=== PATIENT | male | born 1950 | race Caucasian/White ===

== ENCOUNTER → 2017-06-21 | Outpatient (CLI) | payer MEDICARE, OTHER ==
--- NOTE | 2017-06-21 12:35 | US ---
LOWER EXTREMITY VENOUS INSUFFICIENCY SIDE PERFORMED: Bilateral Left food ulcer since February. No hx of DVT. On aspirin. 1) Color flow is present and patency is documented in the following vessels. No DVT or SVT is noted . EIV Common Femoral Vein Deep Femoral Vein Femoral Vein Popliteal Vein Proximal Calf Veins Greater Saph Vein 2) There is venous reflux noted at the following venous levels: Right mid and distal femoral vein. Left distal femoral vein. IMPRESSION: No ultrasound evidence for acute DVT in either lower extremity. Some bilateral venous ref lux is noted as detailed above during real-time scanning.
--- NOTE | 2017-06-27 14:04 | P.ARTDOP ---
Arterial Doppler LOWER EXTREMITY ARTERIAL DOPPLER: DATE OF SERVICE: 06/21/2017 Reason for study: Plantar ulcer diabetic ulcer left foot. Doppler waveforms: Multiphasic bilaterally throughout. Pulse volume recording: Normal configuration. Pressure gradients: None. Ankle-brachial indices: Greater than 1 bilaterally. Toe pressures: 1:30 on the right, 134 on the left Impression: Normal study.
== END | disposition home or self-care (01) ==
LOC: RADUSWWP 09:35
PROVIDERS: ATTEND Family Medicine
DX: M79.604 Pain in right leg (principal); M79.605 Pain in left leg; E13.621 Other specified diabetes mellitus with foot ulcer
CPT/HCPCS: 93923; 93970

== ENCOUNTER → 2018-08-28 | Outpatient (CLI) | payer MEDICARE, OTHER ==
--- NOTE | 2018-08-28 16:33 | US ---
LOWER EXTREMITY VENOUS INSUFFICIENCY SIDE PERFORMED: Bilateral 1) Color flow is present and patency is documented in the following vessels. No DVT or SVT is noted . EIV Common Femoral Vein Deep Femoral Vein Femoral Vein Popliteal Vein Proximal Calf Veins Greater Saph Vein Upper Small Saph Vein Extremely difficult and limited study due to patient body habitus and patient had difficulty perfor jim valsalva Definite reflux seen at levels: left proximal mid and distal popliteal vein IMPRESSION: 1. Reflux present left proximal and mid femoral vein and distal popliteal vein. 2. No suspicious changes to suggest deep venous thrombosis bilateral lower extremities. Examination i s limited.
== END | disposition home or self-care (01) ==
LOC: RADUSWWP 13:26
PROVIDERS: ATTEND Podiatrist
DX: I87.8 Other specified disorders of veins (principal); M79.605 Pain in left leg
CPT/HCPCS: 93923; 93970

== ENCOUNTER 2019-01-06 18:18 | Observation (INO) | payer MEDICARE, OTHER ==
[2019-01-06 18:38] VITALS: RESP 18
[2019-01-06] MEDS ORDERED: DOXYCYCLINE 100 MG CAP PO STA (19:12)
--- NOTE | 2019-01-06 19:16 | ED ---
Skin/Abscess/FB HPI - General Chief complaint: Skin/Abscess/Foreign Body Stated complaint: Foot Wound-diabetic Time Seen by Provider: 01/06/19 18:33 Source: patient Mode of arrival: ambulatory Limitations: no limitations - History of Present Illness Initial comments: Patient is a 68-year-old male with chronic debility, wheelchair-bound, who presents with a chief complaint of a blister on his right heel. Patient receives wound care for the wound on his left foot. He sees them tomorrow. The patient states that he does not know whether he should come to the emergency department today, her weight to see wound care doctor tomorrow regarding his right heel. Patient states it is painful to touch, he denies any fever, chills, nausea or vomiting. He cannot identify inciting incident, no aggravating or alleviating factors. Timing is intermittent. - Related Data Home Medications Medication Instructions Recorded Confirmed Aspirin 81 mg PO DAILY 03/19/15 09/20/18 Cyanocobalamin [Vitamin B-12] 1,000 mcg PO BID 03/19/15 09/20/18 Furosemide [Lasix] 40 mg PO BID 03/19/15 09/20/18 Insulin Aspart [NovoLOG Flexpen] 0 units SQ TID-W/MEALS PRN 03/19/15 09/20/18 Insulin Detemir (Levemir) [Levemir] 23 unit SQ HS 03/19/15 09/20/18 Losartan Potassium [Cozaar] 100 mg PO HS 03/19/15 09/20/18 Metoprolol Tartrate [Lopressor] 100 mg PO BID 03/19/15 09/20/18 NIFEdipine XL [Procardia XL] 30 mg PO DAILY 03/19/15 09/20/18 Oxybutynin Chloride [Ditropan] 5 mg PO BID 03/19/15 09/20/18 PARoxetine HCL [Paxil] 40 mg PO DAILY 03/19/15 09/20/18 metFORMIN HCL 1,000 mg PO BID 03/19/15 09/20/18 Cholecalciferol (Vitamin D3) 2,000 unit PO BID 02/20/17 09/20/18 [Vitamin D3] Potassium Chloride [Klor-Con 20] 20 meq PO BID 02/20/17 09/20/18 Naproxen Sodium [Aleve] 220 mg PO HS PRN 09/17/17 09/20/18 Simvastatin [Zocor] 40 mg PO DAILY 09/17/17 09/20/18 DULoxetine HCL [Cymbalta] 30 mg PO DAILY 08/15/18 09/20/18 Allergies Allergy/AdvReac Type Severity Reaction Status Date / Time clopidogrel [From Plavix] Allergy Rash/Hives Verified 09/20/18 10:24 morphine Allergy Itching Verified 09/20/18 10:24 Review of Systems ROS Statement: Those systems with pertinent positive or pertinent negative responses have been documented in the HPI. ROS Other: All systems not noted in ROS Statement are negative. Skin: Reports: lesions, other Past Medical History Past Medical History: Cancer, Diabetes Mellitus, GERD/Reflux, Hearing Disorder / Deafness, Hyperlipidemia, Hypertension, Osteoarthritis (OA), Prostate Disorder, Skin Disorder, Sleep Apnea/CPAP/BIPAP, Vascular Disorder Additional Past Medical History / Comment(s): IRREG HEART BEAT, HEMORRHOIDS,, STATES ENLARGED HEART., INCONTINENT OF URINE D/T NERVE DAMAGE FROM BACK SURGERY. NEUROPATHY, DDD,, KIDNEY STONES., [place]- HEARING AIDS, , HX OF FALLS, [place] torn ROTATOR CUFFS. , STATES WOUND ON LEFT HEEL AND EDEMA IN LEGS AND FEET- wheelchair History of Any Multi-Drug Resistant Organisms: MRSA Date of last positivie culture/infection: 07/12/17 MDRO Source:: LT HEEL Past Surgical History: Back Surgery, Heart Catheterization Additional Past Surgical History / Comment(s): BACK FUSION, VEIN STRIPPING, surgery on finger after injury(not sure which) Past Anesthesia/Blood Transfusion Reactions: No Reported Reaction Past Psychological History: Anxiety, Depression Smoking Status: Never smoker Past Alcohol Use History: None Reported Past Drug Use History: None Reported - Past Family History Father Family Medical History: Cancer Additional Family Medical History / Comment(s): CANCEROUS BRAIN TUMOR Mother Family Medical History: Deep Vein Thrombosis (DVT) Sister(s) Family Medical History: Diabetes Mellitus, Myocardial Infarction ([place]), Renal Disease General Exam Limitations: no limitations General appearance: alert, in no apparent distress Head exam: Present: atraumatic, normocephalic Eye exam: Present: normal appearance ENT exam: Present: normal exam Neck exam: Present: normal inspection Respiratory exam: Absent: respiratory distress Cardiovascular Exam: Present: regular rate, normal rhythm GI/Abdominal exam: Present: soft. Absent: distended, tenderness Rectal exam: Present: deferred Extremities exam: Present: normal inspection Back exam: Present: normal inspection, other (Patient has a stage III decubitus ulcer on his lower back, midline. This appears well-healed and cared for) Neurological exam: Present: alert, oriented X3 Psychiatric exam: Present: normal affect, normal mood Skin exam: Present: warm, dry, other (Patient has venous stasis ulcers on his l ower extremities, he has a large serous blister on the right heel, he has a stage III decubitus ulcer in his lower back) Course Vital Signs 01/06/19 18:31 Temperature 98.1 F Pulse Rate 72 Respiratory 18 Rate Blood Pressure 135/82 O2 Sat by Pulse 98 Oximetry Medical Decision Making - Medical Decision Making Emergency the chief complaint of blister on his right heel. On initial evaluation, vitals are stable, patient is in no acute distress. The blister appears serous, there is minimal surrounding erythema. At this time, does not appear infectious. I did discuss with the patient regarding plans of care. The patient states that he would be agreeable to following up with his adult health clinical nurse specialist who he sees tomorrow. Patient was started on doxycycline as a measure against an infectious etiology. At this time, is stable for discharge. He was instructed to keep his appointment with wound care tomorrow, return to the ED if symptoms worsen or change. Disposition Clinical Impression: Pressure ulcer Disposition: HOME SELF-CARE Condition: Good Instructions (If sedation given, give patient instructions): Acute Wounds (ED), Chronic Wounds (ED), How to Prevent Pressure Injuries (ED) Is patient prescribed a controlled substance at d/c from ED?: No Referrals: Mejia Singleton MD [Primary Care Provider] - 1-2 days
[2019-01-06 20:56] LABS: Appearance,Urine Clear (Clear); Basophils % (A) 0 %; Bilirubin,Urine Negative (Negative); Blood,Urine Negative (Negative); Color,Urine Yellow; Eosinophils # (A) 0.2 k/uL (0-0.7); Eosinophils % (A) 4 %; Glucose,Urine (UA) 1+ (Negative); HCT 39.3 % (39.0-53.0); HGB 13.5 gm/dL (13.0-17.5); Ketones,Urine Negative (Negative); Leukocyte Esterase,Urine Negative (Negative); Lymphocytes # (A) 0.9 k/uL (1.0-4.8); Lymphocytes % (A) 19 %; MCH 34.3 pg (25.0-35.0); MCHC 34.4 g/dL (31.0-37.0); MCV 99.8 fL (80.0-100.0); Macrocytosis Slight; Mean Platelet Volume 7.4; Monocytes # (A) 0.3 k/uL (0-1.0); Monocytes % (A) 6 %; Neutrophils # (A) 3.1 k/uL (1.3-7.7); Neutrophils % (A) 69 %; Nitrite,Urine Negative (Negative); PH, Urine 6.5 (5.0-8.0); Platelet Count 139 k/uL (150-450); Protein,Urine Negative (Negative); RBC 3.93 m/uL (4.30-5.90); RDW 14.3 % (11.5-15.5); Specific Gravity,Urine 1.014 (1.001-1.035); WBC 4.5 k/uL (3.8-10.6)
[2019-01-06 21:07] LABS: Anion Gap 5 mmol/L; Blood Urea Nitrogen 15 mg/dL (9-20); Calcium 9.2 mg/dL (8.4-10.2); Carbon Dioxide 25 mmol/L (22-30); Chloride 108 mmol/L (98-107); Glucose 190 mg/dL (74-99); Potassium 4.1 mmol/L (3.5-5.1); Sodium 138 mmol/L (137-145)
[2019-01-06] MEDS ORDERED: NALOXONE 0.4 MG/ML 1 ML VIAL IV PRN (22:08)
[2019-01-07] MEDS ORDERED: OXYBUTYNIN CHLORIDE 5 MG TAB PO SCH ×2 (02:00→09:00)
[2019-01-07 02:06] LABS: Glucose,Whole Blood 213 mg/dL (75-99)
[2019-01-07] MEDS ORDERED: LOSARTAN 50 MG TAB PO SCH ×2 (02:15→21:00)
[2019-01-07] MEDS ORDERED: NAPROXEN 250 MG TAB PO PRN ×2 (02:15→06:00)
[2019-01-07] MEDS ORDERED: INSULIN DETEMIR (LEVEMIR) 100 UNIT/ML SYR SQ SCH ×2 (02:15→21:00)
[2019-01-07 06:49] LABS: Glucose,Whole Blood 190 mg/dL (75-99)
[2019-01-07] MEDS ORDERED: CYANOCOBALAMIN 500 MCG TAB PO SCH (07:30)
[2019-01-07 07:31] VITALS: BP 158/79; PULSE 69; TEMP 97.4
--- NOTE | 2019-01-07 07:48 | CONS ---
DATE OF CONSULTATION: 01/08/2019 This is a 68-year-old diabetic gentleman who came to the emergency room last night. He had a blister formation on his right heel. No history of trauma noted. Patient also has a chronic wound of the left heel which today he has appointment at 10 in the morning in the wound clinic. I was called in by the ER physician. They cannot send him home because he has a blister on her right heel and they want to keep him for observation overnight and this morning he will go to the wound clinic. The patient is on IV antibiotic right now. MEDICAL HISTORY: History of diabetes, history of myocardial infarction in the past, history of chronic renal failure, history of prostate disorder. SURGICAL HISTORY: Patient had a back surgery done in the past. PHYSICAL EXAMINATION: On examination, patient has a blister on his right heel and also chronic wound of the left heel. NECK: Supple. CHEST: Clear. ABDOMEN: Soft. Femorals are 1+. PLAN: The patient is on IV antibiotic. I will call the wound clinic today to be seen and patient will be discharged from the observation. MMODL / SUZETTEN: [id number] / MTDD
[2019-01-07] MEDS ORDERED: FUROSEMIDE 40 MG TAB PO SCH (09:00)
[2019-01-07] MEDS ORDERED: ATORVASTATIN 20 MG TAB PO SCH (09:00)
[2019-01-07] MEDS ORDERED: DULoxetine HCL 30 MG CAPSULE.DR PO SCH (09:00)
[2019-01-07] MEDS ORDERED: PARoxetine 20 MG TAB PO SCH (09:00)
[2019-01-07] MEDS ORDERED: NIFEdipine XL 30 MG TAB.ER.24 PO SCH (09:00)
[2019-01-07] MEDS ORDERED: POTASSIUM CHLORIDE ER 20 MEQ TAB.ER PO SCH (09:00)
[2019-01-07] MEDS ORDERED: CHOLECALCIFEROL 1,000 UNIT TAB PO SCH (09:00)
[2019-01-07] MEDS ORDERED: METOPROLOL TARTRATE 50 MG TAB PO SCH (09:00)
[2019-01-07] MEDS ORDERED: metFORMIN 500 MG TAB PO SCH (09:00)
[2019-01-07] MEDS ORDERED: ASPIRIN 81 MG PO SCH (09:00)
--- NOTE | 2019-01-07 09:15 | P.HPIM ---
History of Present Illness This is a combined H&P and discharge summary This is a pleasant 68 years old male with past medical history of diabetes mellitus, hyperlipidemia, hypertension, chronic left wound on his left heel, is bedbound for the last 4-5 months. Decreased sensation from the waist down, urine incontinence. Obesity. Who has a follow-up appointment with him in the clinic for his left heel wound today. Patient came to the emergency room ye sterday for a blister in his right heel for the last 2 days with no surrounding cellulitis, no worsening pain. No fever. He has no other symptoms like chest pain or dyspnea. No diarrhea, no rash. Patient states that he has difficulty in the transportation due to his body habitus as he is obese and inability to walk for the last few months, he has family with small cars or uncomfortable seats and he kept in the hospital overnight for observation with the hope patient can be discharged today for his wound clinic. On examination patient has some serous blister on his right heel with no surrounding cellulitis with no worsening tenderness or loss of function, patient was started on doxycycline for a few days already in the emergency room and kept overnight to be evaluated by the surgeon. Dr. Pinzon from surgery examined the patient today and admitted the patient to be sent to the wound clinic today. Patient's wants to be discharged to his wound clinic appointment today at 10:00 am. Patient was cleared for discharge by the surgeon. Patient is found stable and can be discharged home and to wound clinic appointment today in guarded prognosis. Problems and management plan were discussed with the patient and he verbalized understanding and acceptance CONSTITUTIONAL: No fever, no malaise, no fatigue. HEENT: No recent visual problems or hearing problems. Denied any sore throat. CARDIOVASCULAR: No orthopnea, PND, no palpitations, no syncope. PULMONARY: No shortness of breath, no cough, no hemoptysis. GASTROINTESTINAL: No diarrhea, no nausea, no vomiting, no abdominal pain. Normoactive bowel sounds. NEUROLOGICAL: No headaches, no numbness. HEMATOLOGICAL: Denies any bleeding or petechiae. GENITOURINARY: Denies any burning micturition, frequency, or urgency. MUSCULOSKELETAL/RHEUMATOLOGICAL: Denies any joint pain, swelling, or any muscle pain. ENDOCRINE: Denies any polyuria or polydipsia. GENERAL: The patient is alert and oriented x3, not in any acute distress. Obese HEENT: Pupils are round and equally reacting to light. EOMI. No scleral icterus. No conjunctival pallor. Normocephalic, atraumatic. No pharyngeal erythema. No thyromegaly. CARDIOVASCULAR: S1 and S2 present. No murmurs, rubs, or gallops. PULMONARY: Chest is clear to auscultation, no wheezing or crackles. ABDOMEN: Soft, nontender, nondistended, normoactive bowel sounds. No palpable or ganomegaly. MUSCULOSKELETAL: No joint swelling or deformity. -EXTREMITIES: No cyanosis, clubbing, or pedal edema. Serous blister on the right heel, wound on the left heel. No cellulitis on both sides. -NEUROLOGICAL: Gross neurological examination did not reveal any focal deficits. Patient is bedridden, he has decreased sensation below the waist SKIN: No rashes. Past Medical History Past Medical History: Cancer, Diabetes Mellitus, GERD/Reflux, Hearing Disorder / Deafness, Hyperlipidemia, Hypertension, Osteoarthritis (OA), Prostate Disorder, Skin Disorder, Sleep Apnea/CPAP/BIPAP, Vascular Disorder Additional Past Medical History / Comment(s): IRREG HEART BEAT, HEMORRHOIDS,, STATES ENLARGED HEART., INCONTINENT OF URINE D/T NERVE DAMAGE FROM BACK SURGERY. NEUROPATHY, DDD,, KIDNEY STONES., [place]- HEARING AIDS, , HX OF FALLS, [place] torn ROTATOR CUFFS. , STATES WOUND ON LEFT HEEL AND EDEMA IN LEGS AND FEET- wheelchair History of Any Multi-Drug Resistant Organisms: MRSA Date of last positivie culture/infection: 07/12/17 MDRO Source:: LT HEEL Past Surgical History: Back Surgery, Heart Catheterization Additional Past Surgical History / Comment(s): BACK FUSION, VEIN STRIPPING, surgery on finger after injury(not sure which) Past Anesthesia/Blood Transfusion Reactions: No Reported Reaction Past Psychological History: Anxiety, Depression Additional Psychological History / Comment(s): . Smoking Status: Never smoker Past Alcohol Use History: None Reported Past Drug Use History: None Reported - Past Family History Father Family Medical History: Cancer Additional Family Medical History / Comment(s): CANCEROUS BRAIN TUMOR Mother Family Medical History: Deep Vein Thrombosis (DVT) Sister(s) Family Medical History: Diabetes Mellitus, Myocardial Infarction ([place]), Renal Disease Medications and Allergies Home Medications Medication Instructions Recorded Confirmed Type Aspirin 81 mg PO DAILY 03/19/15 01/06/19 History Cyanocobalamin [Vitamin B-12] 1,000 mcg PO BID 03/19/15 01/06/19 History Furosemide [Lasix] 40 mg PO BID 03/19/15 01/06/19 History Insulin Aspart [NovoLOG Flexpen] See Protocol SQ TID-W/MEALS 03/19/15 01/06/19 History Insulin Detemir (Levemir) [Levemir] 23 unit SQ HS 03/19/15 01/06/19 History Losartan Potassium [Cozaar] 100 mg PO HS 03/19/15 01/06/19 History Metoprolol Tartrate [Lopressor] 100 mg PO BID 03/19/15 01/06/19 History NIFEdipine XL [Procardia XL] 30 mg PO DAILY 03/19/15 01/06/19 History Oxybutynin Chloride [Ditropan] 5 mg PO BID 03/19/15 01/06/19 History PARoxetine HCL [Paxil] 40 mg PO DAILY 03/19/15 01/06/19 History metFORMIN HCL 1,000 mg PO BID 03/19/15 01/06/19 History Cholecalciferol (Vitamin D3) 2,000 unit PO BID 02/20/17 01/06/19 History [Vitamin D3] Potassium Chloride [Klor-Con 20] 20 meq PO BID 02/20/17 01/06/19 History Simvastatin [Zocor] 40 mg PO DAILY 09/17/17 01/06/19 History DULoxetine HCL [Cymbalta] 30 mg PO DAILY 08/15/18 01/06/19 History Doxycycline Hyclate 100 mg PO Q12H #14 tab 01/06/19 Rx Allergies Allergy/AdvReac Type Severity Reaction Status Date / Time clopidogrel [From Plavix] Allergy Rash/Hives Verified 09/20/18 10:24 morphine Allergy Itching Verified 09/20/18 10:24 Physical Exam Vitals: Vital Signs Temp Pulse Pulse Resp BP BP Pulse Ox 01/07/19 08:00 69 18 01/07/19 07:20 97.4 F L 69 18 158/79 93 L 01/07/19 03:07 67 18 01/07/19 00:00 98 F 67 18 155/87 96 01/06/19 22:28 18 01/06/19 21:50 142/74 93 L 01/06/19 21:40 142/74 90 L 01/06/19 21:30 151/77 92 L 01/06/19 21:20 97.6 F 68 151/77 92 L 01/06/19 21:10 151/77 92 L 01/06/19 21:00 93 L 01/06/19 20:50 94 L 01/06/19 20:00 131/98 01/06/19 19:50 131/98 01/06/19 19:40 131/98 01/06/19 19:30 142/66 93 L 01/06/19 19:20 97.6 F 68 142/66 94 L 01/06/19 19:10 142/66 94 L 01/06/19 19:00 135/82 94 L 01/06/19 18:50 135/82 94 L 01/06/19 18:40 135/82 93 L 01/06/19 18:32 135/82 96 01/06/19 18:31 98.1 F 72 18 135/82 98 Intake and Output 01/06/19 01/07/19 01/07/19 22:59 06:59 14:59 Intake Total 120 Balance 120 Intake: Oral 120 Other: Voiding Method Urinal Urinal # Voids 1 1 Weight 156.489 kg Results CBC & Chem 7: 01/06/19 20:40 01/06/19 20:40 Labs: Abnormal Lab Results - Last 24 Hours (Table) 01/06/19 01/06/19 01/06/19 Range/Units 20:40 20:40 20:40 RBC 3.93 L (4.30-5.90) m/uL Plt Count 139 L (150-450) k/uL Lymphocytes # 0.9 L (1.0-4.8) k/uL Chloride 108 H (98-107) mmol/L Creatinine 0.60 L (0.66-1.25) mg/dL Glucose 190 H (74-99) mg/dL POC Glucose (mg/dL) (75-99) mg/dL Urine Glucose (UA) 1+ H (Negative) 01/07/19 01/07/19 Range/Units 02:05 06:38 RBC (4.30-5.90) m/uL Plt Count (150-450) k/uL Lymphocytes # (1.0-4.8) k/uL Chloride (98-107) mmol/L Creatinine (0.66-1.25) mg/dL Glucose (74-99) mg/dL POC Glucose (mg/dL) 213 H 190 H (75-99) mg/dL Urine Glucose (UA) (Negative) Thrombosis Risk Factor Assmnt - Choose All That Apply Each Factor Represents 1 point: Obesity (BMI >25) Each Risk Factor Represents 2 Points: Age 61-74 years Thrombosis Risk Factor Assessment Total Risk Factor Score: 3 Thrombosis Risk Factor Assessment Level: Moderate Risk
== END 2019-01-07 09:50 | disposition home or self-care (01) ==
LOC: EC 18:18 → 1SOBS 22:08
PROVIDERS: ADMIT Internal Medicine; ATTEND Internal Medicine
DX: S91.302A Unspecified open wound, left foot, initial encounter (principal); S90.821A Blister (nonthermal), right foot, initial encounter; L89.103 Pressure ulcer of unspecified part of back, stage 3; E11.622 Type 2 diabetes mellitus with other skin ulcer; E66.9 Obesity, unspecified; Z68.42 Body mass index [BMI] 45.0-49.9, adult; K21.9 Gastro-esophageal reflux disease without esophagitis; E78.5 Hyperlipidemia, unspecified; E11.40 Type 2 diabetes mellitus with diabetic neuropathy, unspecified; E11.22 Type 2 diabetes mellitus with diabetic chronic kidney disease; I13.10 Hypertensive heart and chronic kidney disease without heart failure, with stage 1 through stage 4 chronic kidney disease, or unspecified chronic kidney disease; N18.9 Chronic kidney disease, unspecified; M19.90 Unspecified osteoarthritis, unspecified site; G47.30 Sleep apnea, unspecified; F41.9 Anxiety disorder, unspecified; F32.9 Major depressive disorder, single episode, unspecified; I25.2 Old myocardial infarction; H91.90 Unspecified hearing loss, unspecified ear; R26.2 Difficulty in walking, not elsewhere classified; Z99.89 Dependence on other enabling machines and devices; Z98.1 Arthrodesis status; Z99.3 Dependence on wheelchair; Z74.01 Bed confinement status; Z87.442 Personal history of urinary calculi; Z97.4 Presence of external hearing-aid; Z86.14 Personal history of Methicillin resistant Staphylococcus aureus infection; R32 Unspecified urinary incontinence; Z79.82 Long term (current) use of aspirin; Z79.4 Long term (current) use of insulin; Z79.899 Other long term (current) drug therapy; Z88.5 Allergy status to narcotic agent; Z88.8 Allergy status to other drugs, medicaments and biological substances; Z91.81 History of falling; Z82.49 Family history of ischemic heart disease and other diseases of the circulatory system; Z80.8 Family history of malignant neoplasm of other organs or systems; Z83.2 Family history of diseases of the blood and blood-forming organs and certain disorders involving the immune mechanism; Z84.1 Family history of disorders of kidney and ureter
CPT/HCPCS: 99284; 36415; 80048; 85025; 81003; G0378 ×2

== ENCOUNTER 2020-06-11 17:28 | Observation (INO) | payer MEDICARE, OTHER ==
[2020-06-11] MEDS ORDERED: ACETAMINOPHEN TAB 500 MG TAB PO PRN (17:38)
[2020-06-11 18:36] LABS: Basophils % (A) 1 %; Eosinophils # (A) 0.1 k/uL (0-0.7); Eosinophils % (A) 2 %; HCT 42.7 % (39.0-53.0); HGB 14.6 gm/dL (13.0-17.5); Lymphocytes % (A) 23 %; MCH 35.7 pg (25.0-35.0); MCHC 34.3 g/dL (31.0-37.0); MCV 104.3 fL (80.0-100.0); Macrocytosis Slight; Mean Platelet Volume 7.3; Monocytes # (A) 0.3 k/uL (0-1.0); Monocytes % (A) 7 %; Neutrophils # (A) 2.9 k/uL (1.3-7.7); Neutrophils % (A) 64 %; Platelet Count 185 k/uL (150-450); RDW 13.7 % (11.5-15.5); WBC 4.5 k/uL (3.8-10.6)
[2020-06-11 18:47] LABS: ALT 19 U/L (4-49); AST 25 U/L (17-59); African American GFR (CKD) >90 (>60 ml/min/1.73 sqM); Albumin 3.9 g/dL (3.5-5.0); Alkaline Phosphatase 77 U/L (38-126); Anion Gap 7 mmol/L; Blood Urea Nitrogen 23 mg/dL (9-20); C Reactive Protein 9.1 mg/L (<10.0); Calcium 9.8 mg/dL (8.4-10.2); Carbon Dioxide 27 mmol/L (22-30); Chloride 102 mmol/L (98-107); Glucose 147 mg/dL (74-99); LDH 469 U/L (313-618); Magnesium 1.7 mg/dL (1.6-2.3); Non-African American GFR(CKD) >90 (>60 ml/min/1.73 sqM); Potassium 4.4 mmol/L (3.5-5.1); Sodium 136 mmol/L (137-145); Total Bilirubin 0.5 mg/dL (0.2-1.3); Total Protein 6.9 g/dL (6.3-8.2)
[2020-06-11 18:49] LABS: D-Dimer 0.38 mg/L FEU (<0.60); INR 0.9 (<1.2); Partial Thromboplastin Time 25.8 sec (22.0-30.0); Prothrombin Time 9.4 sec (9.0-12.0)
[2020-06-11 18:56] LABS: Creatine Kinase MB 1.4 ng/mL (0.0-2.4); Troponin I <0.012 ng/mL (0.000-0.034)
--- NOTE | 2020-06-11 18:56 | XR ---
EXAMINATION TYPE: XR chest 2V DATE OF EXAM: 06/11/2020 COMPARISON: NONE HISTORY: Short of breath TECHNIQUE: 3 views FINDINGS: There is some mild linear density at the lung bases. There is no heart failure. There are n o hilar masses. Heart size is normal. There is no pleural effusion. IMPRESSION: Mild subsegmental atelectasis. Normal heart.
--- NOTE | 2020-06-11 19:07 | ED ---
Recheck HPI - General Chief Complaint: Recheck/Abnormal Lab/Rx Stated Complaint: Covid + Time Seen by Provider: 06/11/20 17:28 Source: patient, RN/MD, EMS, RN notes reviewed Mode of arrival: EMS Limitations: no limitations - History of Present Illness Initial Comments: This is a 69-year-old male who lives in a nursing facility he does have a history of peripheral neuropathy leg weakness who was tested for Covid 19 today and family positive denies any fevers chills nausea vomiting sweats he states he may be slightly febrile however no cough or shortness of breath or other symptoms. The facility he is at has no Covid capabilities - Related Data Home Medications Medication Instructions Recorded Confirmed Aspirin 81 mg PO DAILY 03/19/15 01/06/19 Cyanocobalamin [Vitamin B-12] 1,000 mcg PO BID 03/19/15 01/06/19 Furosemide [Lasix] 40 mg PO BID 03/19/15 01/06/19 Insulin Aspart [NovoLOG Flexpen] See Protocol SQ TID-W/MEALS 03/19/15 01/06/19 Insulin Detemir (Levemir) [Levemir] 23 unit SQ HS 03/19/15 01/06/19 Losartan Potassium [Cozaar] 100 mg PO HS 03/19/15 01/06/19 Metoprolol Tartrate [Lopressor] 100 mg PO BID 03/19/15 01/06/19 NIFEdipine XL [Procardia XL] 30 mg PO DAILY 03/19/15 01/06/19 Oxybutynin Chloride [Ditropan] 5 mg PO BID 03/19/15 01/06/19 PARoxetine HCL [Paxil] 40 mg PO DAILY 03/19/15 01/06/19 metFORMIN HCL 1,000 mg PO BID 03/19/15 01/06/19 Cholecalciferol (Vitamin D3) 2,000 unit PO BID 02/20/17 01/06/19 [Vitamin D3] Potassium Chloride [Klor-Con 20] 20 meq PO BID 02/20/17 01/06/19 Simvastatin [Zocor] 40 mg PO DAILY 09/17/17 01/06/19 DULoxetine HCL [Cymbalta] 30 mg PO DAILY 08/15/18 01/06/19 Previous Rx's Medication Instructions Recorded Doxycycline Hyclate 100 mg PO Q12H #14 tab 01/06/19 Allergies Allergy/AdvReac Type Severity Reaction Status Date / Time clopidogrel [From Plavix] Allergy Rash/Hives Verified 06/11/20 18:57 morphine Allergy Itching Verified 06/11/20 18:57 Review of Systems ROS Statement: Those systems with pertinent positive or pertinent negative responses have been documented in the HPI. ROS Other: All systems not noted in ROS Statement are negative. Past Medical History Past Medical History: Cancer, Diabetes Mellitus, GERD/Reflux, Hearing Disorder / Deafness, Hyperlipidemia, Hypertension, Osteoarthritis (OA), Prostate Disorder, Skin Disorder, Sleep Apnea/CPAP/BIPAP, Vascular Disorder Additional Past Medical History / Comment(s): IRREG HEART BEAT, HEMORRHOIDS,, STATES ENLARGED HEART., INCONTINENT OF URINE D/T NERVE DAMAGE FROM BACK SURGERY. NEUROPATHY, DDD,, KIDNEY STONES., [place]- HEARING AIDS, , HX OF [place], [place] torn ROTATOR CUFFS. , STATES WOUND ON LEFT HEEL AND EDEMA IN LEGS AND FEET- wheelchair History of Any Multi-Drug Resistant Organisms: MRSA Date of last positivie culture/infection: 07/12/17 MDRO Source:: LT HEEL Past Surgical History: Back Surgery, Heart Catheterization Additional Past Surgical History / Comment(s): BACK FUSION, VEIN STRIPPING, surgery on finger after injury(not sure which) Past Anesthesia/Blood Transfusion Reactions: No Reported Reaction Past Psychological History: Anxiety, Depression Smoking Status: Never smoker Past Alcohol Use History: None Reported Past Drug Use History: None Reported - Past Family History Father Family Medical History: Cancer Additional Family Medical History / Comment(s): CANCEROUS BRAIN TUMOR Mother Family Medical History: Deep Vein Thrombosis (DVT) Sister(s) Family Medical History: Diabetes Mellitus, Myocardial Infarction ([place]), Renal Disease General Exam - General Exam Comments Initial Comments: This a well-developed well-nourished awake alert oriented times 3 male Limitations: no limitations General appearance: alert Head exam: Present: atraumatic, normocephalic, normal inspection Eye exam: Present: normal appearance, PERRL, EOMI. Absent: scleral icterus, conjunctival injection, periorbital swelling ENT exam: Present: normal exam, mucous membranes moist Neck exam: Present: normal inspection, full ROM, other (No stridor JVD or bruits). Absent: tenderness, meningismus, lymphadenopathy Respiratory exam: Present: decreased breath sounds. Absent: respiratory distress, wheezes, rales, rhonchi, stridor Cardiovascular Exam: Present: regular rate, normal rhythm, normal heart sounds. Absent: systolic murmur, diastolic murmur, rubs, gallop, clicks GI/Abdominal exam: Present: soft, normal bowel sounds. Absent: distended, tenderness, guarding, rebound, rigid Extremities exam: Present: full ROM, normal capillary refill, other (Decreased sensation of the lower extremities trace edema). Absent: tenderness, pedal edema, joint swelling, calf tenderness Back exam: Present: normal inspection Neurological exam: Present: alert, oriented X3, CN II-XII intact Psychiatric exam: Present: normal affect, normal mood Skin exam: Present: warm, dry, intact, normal color. Absent: rash Course Vital Signs 06/11/20 06/11/20 17:37 19:00 Temperature 98.0 F 98.3 F Pulse Rate 89 88 Respiratory 17 16 Rate Blood Pressure 133/86 142/90 O2 Sat by Pulse 99 99 Oximetry Medical Decision Making - Medical Decision Making I did review the materials from the skilled nursing. Patient will be admitted the case was discussed with Dr. Piña - Lab Data Result diagrams: 06/11/20 17:45 06/11/20 17:45 Lab Results 06/11/20 06/11/20 06/11/20 Range/Units 17:45 17:45 17:45 WBC 4.5 (3.8-10.6) k/uL RBC 4.10 L (4.30-5.90) m/uL Hgb 14.6 (13.0-17.5) gm/dL Hct 42.7 (39.0-53.0) % MCV 104.3 H (80.0-100.0) fL MCH 35.7 H (25.0-35.0) pg MCHC 34.3 (31.0-37.0) g/dL RDW 13.7 (11.5-15.5) % Plt Count 185 (150-450) k/uL Neutrophils % 64 % Lymphocytes % 23 % Monocytes % 7 % Eosinophils % 2 % Basophils % 1 % Neutrophils # 2.9 (1.3-7.7) k/uL Lymphocytes # 1.0 (1.0-4.8) k/uL Monocytes # 0.3 (0-1.0) k/uL Eosinophils # 0.1 (0-0.7) k/uL Basophils # 0.0 (0-0.2) k/uL Macrocytosis Slight PT 9.4 (9.0-12.0) sec INR 0.9 (<1.2) APTT 25.8 (22.0-30.0) sec D-Dimer 0.38 (<0.60) mg/L FEU Sodium 136 L (137-145) mmol/L Potassium 4.4 (3.5-5.1) mmol/L Chloride 102 (98-107) mmol/L Carbon Dioxide 27 (22-30) mmol/L Anion Gap 7 mmol/L BUN 23 H (9-20) mg/dL Creatinine 0.76 (0.66-1.25) mg/dL Est GFR (CKD-EPI)AfAm >90 (>60 ml/min/1.73 sqM) Est GFR (CKD-EPI)NonAf >90 (>60 ml/min/1.73 sqM) Glucose 147 H (74-99) mg/dL Plasma Lactic Acid Héctor (0.7-2.0) mmol/L Calcium 9.8 (8.4-10.2) mg/dL Magnesium 1.7 (1.6-2.3) mg/dL Total Bilirubin 0.5 (0.2-1.3) mg/dL AST 25 (17-59) U/L ALT 19 (4-49) U/L Alkaline Phosphatase 77 (38-126) U/L Lactate Dehydrogenase 469 (313-618) U/L CK-MB (CK-2) (0.0-2.4) ng/mL Troponin I (0.000-0.034) ng/mL C-Reactive Protein 9.1 (<10.0) mg/L NT-Pro-B Natriuret Pep pg/mL Total Protein 6.9 (6.3-8.2) g/dL Albumin 3.9 (3.5-5.0) g/dL Influenza Type A RNA (Not Detectd) Influenza Type B (PCR) (Not Detectd) 06/11/20 06/11/20 06/11/20 Range/Units 17:45 17:45 17:45 WBC (3.8-10.6) k/uL RBC (4.30-5.90) m/uL Hgb (13.0-17.5) gm/dL Hct (39.0-53.0) % MCV (80.0-100.0) fL MCH (25.0-35.0) pg MCHC (31.0-37.0) g/dL RDW (11.5-15.5) % Plt Count (150-450) k/uL Neutrophils % % Lymphocytes % % Monocytes % % Eosinophils % % Basophils % % Neutrophils # (1.3-7.7) k/uL Lymphocytes # (1.0-4.8) k/uL Monocytes # (0-1.0) k/uL Eosinophils # (0-0.7) k/uL Basophils # (0-0.2) k/uL Macrocytosis PT (9.0-12.0) sec INR (<1.2) APTT (22.0-30.0) sec D-Dimer (<0.60) mg/L FEU Sodium (137-145) mmol/L Potassium (3.5-5.1) mmol/L Chloride (98-107) mmol/L Carbon Dioxide (22-30) mmol/L Anion Gap mmol/L BUN (9-20) mg/dL Creatinine (0.66-1.25) mg/dL Est GFR (CKD-EPI)AfAm (>60 ml/min/1.73 sqM) Est GFR (CKD-EPI)NonAf (>60 ml/min/1.73 sqM) Glucose (74-99) mg/dL Plasma Lactic Acid Héctor 2.6 H* (0.7-2.0) mmol/L Calcium (8.4-10.2) mg/dL Magnesium (1.6-2.3) mg/dL Total Bilirubin (0.2-1.3) mg/dL AST (17-59) U/L ALT (4-49) U/L Alkaline Phosphatase (38-126) U/L Lactate Dehydrogenase (313-618) U/L CK-MB (CK-2) 1.4 (0.0-2.4) ng/mL Troponin I <0.012 (0.000-0.034) ng/mL C-Reactive Protein (<10.0) mg/L NT-Pro-B Natriuret Pep 158 pg/mL Total Protein (6.3-8.2) g/dL Albumin (3.5-5.0) g/dL Influenza Type A RNA (Not Detectd) Influenza Type B (PCR) (Not Detectd) 06/11/20 Range/Units 17:45 WBC (3.8-10.6) k/uL RBC (4.30-5.90) m/uL Hgb (13.0-17.5) gm/dL Hct (39.0-53.0) % MCV (80.0-100.0) fL MCH (25.0-35.0) pg MCHC (31.0-37.0) g/dL RDW (11.5-15.5) % Plt Count (150-450) k/uL Neutrophils % % Lymphocytes % % Monocytes % % Eosinophils % % Basophils % % Neutrophils # (1.3-7.7) k/uL Lymphocytes # (1.0-4.8) k/uL Monocytes # (0-1.0) k/uL Eosinophils # (0-0.7) k/uL Basophils # (0-0.2) k/uL Macrocytosis PT (9.0-12.0) sec INR (<1.2) APTT (22.0-30.0) sec D-Dimer (<0.60) mg/L FEU Sodium (137-145) mmol/L Potassium (3.5-5.1) mmol/L Chloride (98-107) mmol/L Carbon Dioxide (22-30) mmol/L Anion Gap mmol/L BUN (9-20) mg/dL Creatinine (0.66-1.25) mg/dL Est GFR (CKD-EPI)AfAm (>60 ml/min/1.73 sqM) Est GFR (CKD-EPI)NonAf (>60 ml/min/1.73 sqM) Glucose (74-99) mg/dL Plasma Lactic Acid Héctor (0.7-2.0) mmol/L Calcium (8.4-10.2) mg/dL Magnesium (1.6-2.3) mg/dL Total Bilirubin (0.2-1.3) mg/dL AST (17-59) U/L ALT (4-49) U/L Alkaline Phosphatase (38-126) U/L Lactate Dehydrogenase (313-618) U/L CK-MB (CK-2) (0.0-2.4) ng/mL Troponin I (0.000-0.034) ng/mL C-Reactive Protein (<10.0) mg/L NT-Pro-B Natriuret Pep pg/mL Total Protein (6.3-8.2) g/dL Albumin (3.5-5.0) g/dL Influenza Type A RNA Not Detected (Not Detectd) Influenza Type B (PCR) Not Detected (Not Detectd) - EKG Data -: EKG Interpreted by Pa EKG shows normal: sinus rhythm (Sinus rhythm first-degree AV block rate was 83 CT interval 248 QRS 174 QT since QTC 434/509 evidence a left bundle branch block) Disposition Clinical Impression: Viral pneumonia, COVID-19 Disposition: ADMITTED IP TO THIS HOSP Condition: Fair Referrals: Allan Miranda MD [Primary Care Provider] - 1-2 days
[2020-06-11] MEDS ORDERED: NALOXONE 0.4 MG/ML 1 ML VIAL IV PRN (19:10)
[2020-06-11] MEDS: SODIUM CHLORIDE 0.9% 1,000 ML IV SCH (20:21)
[2020-06-12] MEDS: METOPROLOL TARTRATE 50 MG TAB PO SCH ×3 (00:03→21:03)
[2020-06-12] MEDS: metFORMIN 500 MG TAB PO SCH ×3 (00:03→21:04)
[2020-06-12] MEDS: INSULIN ASPART (NovoLOG) 100 UNIT/ML VIAL SQ SCH ×9 (00:04→21:37)
[2020-06-12] MEDS: POTASSIUM CHLORIDE ER 20 MEQ TAB.ER PO SCH ×3 (00:04→21:04)
[2020-06-12] MEDS: LOSARTAN 50 MG TAB PO SCH ×2 (00:04→21:03)
[2020-06-12] MEDS: FUROSEMIDE 40 MG TAB PO SCH ×3 (00:04→21:05)
[2020-06-12] MEDS: HEPARIN SODIUM,PORCINE 5,000 UNIT/ML 1 ML VIAL SQ SCH ×3 (00:04→16:49)
[2020-06-12 00:17] LABS: Glucose,Whole Blood 179 mg/dL (75-99)
[2020-06-12] MEDS: OXYBUTYNIN CHLORIDE 5 MG TAB PO SCH ×3 (00:42→21:06)
[2020-06-12 02:22] LABS: Ferritin 506.1 ng/mL (22.0-322.0)
[2020-06-12] MEDS: SODIUM CHLORIDE 0.9% 1,000 ML IV SCH ×3 (05:55→21:36)
[2020-06-12] MEDS ORDERED: DULoxetine HCL 60 MG CAPSULE.DR PO SCH (07:00)
[2020-06-12 07:52] LABS: Glucose,Whole Blood 172 mg/dL (75-99)
[2020-06-12] MEDS: ATORVASTATIN 20 MG TAB PO SCH (09:45)
[2020-06-12] MEDS: NIFEdipine XL 30 MG TAB.ER.24 PO SCH (09:57)
[2020-06-12] MEDS: PARoxetine 20 MG TAB PO SCH (09:57)
[2020-06-12 12:33] LABS: Glucose,Whole Blood 188 mg/dL (75-99)
[2020-06-12] MEDS ORDERED: BENZOCAINE 20 % GEL 15 GM TUBE MM PRN (12:38)
[2020-06-12] MEDS ORDERED: NON FORMULARY DRUG (Menthol [Biofreeze] 89 ML Gel..Ml.) TOPICAL PRN (12:38)
[2020-06-12] MEDS ORDERED: bisacodyL 10 MG SUPP RECTAL PRN (12:38)
[2020-06-12] MEDS: DULoxetine HCL 30 MG CAPSULE.DR PO SCH (13:36)
[2020-06-12] MEDS: IBUPROFEN 400 MG TAB PO SCH ×2 (16:49→21:04)
[2020-06-12 17:53] LABS: Glucose,Whole Blood 186 mg/dL (75-99)
[2020-06-12 20:14] LABS: Glucose,Whole Blood 188 mg/dL (75-99)
--- NOTE | 2020-06-12 20:38 | P.HPIM ---
History of Present Illness H&P Date: 06/12/20 Chief Complaint: COVID positive History of presenting complaint: This is a pleasant 69-year-old patient who is at [facility] being followed by Dr. Allan Miranda. Chronic stable medical conditions include diabetes, GERD, hyperlipidemia, hypertension, osteoarthritis, arthritis sleep apnea, hemorrhoids, neurogenic bladder with incontinence of urine, peripheral neuropathy, hard of hearing,. Normally uses a wheelchair. Tested positive for COVID 19. His rehab facility has no arrangements for the same. Has patient is transferred down here. Patient have had a low-grade fever. No cough or shortness of breath. Appetite is fair. Eating well. No loss of taste or smell. No diarrhea Review of systems: GEN.: Low-grade fever EYES: None HEENT: Decreased hearing NECK: None RESPIRATORY: None CARDIOVASCULAR: None GASTROINTESTINAL: None GENITOURINARY: None MUSCULOSKELETAL: Joint pains LYMPHATICS: None HEMATOLOGICAL: None PSYCHIATRY: None NEUROLOGICAL: Peripheral neuropathy] Past medical history to include: Diabetes, GERD, hard of hearing, hyperlipidemia, hypertension, osteoarthritis, prostate disorder, arthritis sleep apnea, hemorrhoids, incontinent of urine due to from back surgery, peripheral neuropathy, kidney stones, bilateral rotator cuff tone, wound of the left heel, anxiety depression Social history: No history of smoking or alcohol. Currently at [facility]. Physical examination: VITAL SIGNS: 98.1, 95, 18, 119/73, 98% on room air GENERAL: BMI 44.5, laying in bed, comfortable. EYES: Pupils equal. Conjunctiva normal. HEENT: External appearance of nose and ears normal, oral cavity grossly normal. NECK: JVD not raised; masses not palpable. HEART: First and second heart sounds are normal; no edema. LUNGS: Respiratory rate normal; clear to auscultation. ABDOMEN: Soft, nontender, liver spleen not palpable, no masses palpable. PSYCH: Alert and oriented x3; mood and affect normal. NEUROLOGICAL: Cranial nerves grossly intact; no facial asymmetry, power and sensation grossly intact. LYMPHATICS: No lymph nodes palpable in the axilla and neck INVESTIGATIONS, reviewed in the clinical context: White count 4.5 hemoglobin 14.6 platelets 185 potassium 4.4 creatinine 0.76 Lactic acid 2.6 ferritin 506 CRP 9.1 pro-calcitonin 0.07 Influenza type A and type B both negative EKG tracing personally reviewed by me-sinus rhythm, left bundle-branch block Chest x-ray film personally reviewed by me-possible atelectasis Assessment: -Acute COVID 19 PCR positive. Patient is asymptomatic. No diarrhea, no shortness breath, no changes taste or smell no headache. -Diabetes mellitus type 2 -GERD -Hyperlipidemia -Essential hypertension -Primary osteoarthritis -BPH -Obstructive sleep apnea and -Chronic Urinary incontinence probably from neurogenic bladder due to damage from back surgery -Peripheral neuropathy -Hard of hearing and uses hearing aids -Chronic gait dysfunction uses a wheelchair Plan: Home medications will be continued. Currently no indication blood thinners are steroids. Patient be monitored clinically. Placed on COVID 19 isolation. Care was discussed with the patient and questions answered. Past Medical History Past Medical History: Cancer, Diabetes Mellitus, GERD/Reflux, Hearing Disorder / Deafness, Hyperlipidemia, Hypertension, Osteoarthritis (OA), Prostate Disorder, Skin Disorder, Sleep Apnea/CPAP/BIPAP, Vascular Disorder Additional Past Medical History / Comment(s): IRREG HEART BEAT, HEMORRHOIDS,, STATES ENLARGED HEART., INCONTINENT OF URINE D/T NERVE DAMAGE FROM BACK SURGERY. NEUROPATHY, DDD,, KIDNEY STONES., [place]- HEARING AIDS, , HX OF [place], [place] torn ROTATOR CUFFS. , STATES WOUND ON LEFT HEEL AND EDEMA IN LEGS AND FEET- wheelchair History of Any Multi-Drug Resistant Organisms: MRSA Date of last positivie culture/infection: 07/12/17 MDRO Source:: LT HEEL Past Surgical History: Back Surgery, Heart Catheterization Additional Past Surgical History / Comment(s): BACK FUSION, VEIN STRIPPING, surgery on finger after injury(not sure which) Past Anesthesia/Blood Transfusion Reactions: No Reported Reaction Past Psychological History: Anxiety, Depression Additional Psychological History / Comment(s): . Smoking Status: Never smoker Past Alcohol Use History: None Reported Past Drug Use History: None Reported - Past Family History Father Family Medical History: Cancer Additional Family Medical History / Comment(s): CANCEROUS BRAIN TUMOR Mother Family Medical History: Deep Vein Thrombosis (DVT) Sister(s) Family Medical History: Diabetes Mellitus, Myocardial Infarction ([place]), Renal Disease Medications and Allergies Home Medications Medication Instructions Recorded Confirmed Type Aspirin 81 mg PO DAILY@0700 03/19/15 06/11/20 History Furosemide [Lasix] 40 mg PO BID@0700,1300 03/19/15 06/11/20 History Insulin Detemir (Levemir) [Levemir] 40 unit SQ HS@209903/19/15 06/11/20 History Losartan Potassium [Cozaar] 100 mg PO DAILY@0700 03/19/15 06/11/20 History Metoprolol Tartrate [Lopressor] 100 mg PO BID@0700,209903/19/15 06/11/20 History NIFEdipine XL [Procardia XL] 60 mg PO HS@209903/19/15 06/11/20 History Oxybutynin Chloride [Ditropan] 5 mg PO BID@0700,209903/19/15 06/11/20 History metFORMIN HCL 1,000 mg PO BID@0700,1700 03/19/15 06/11/20 History Potassium Chloride [Klor-Con 20] 20 meq PO BID@0700,209902/20/17 06/11/20 History DULoxetine HCL [Cymbalta] 30 mg PO DAILY@0700 08/15/18 06/11/20 History Acetaminophen Tab [Tylenol] 650 mg PO Q4H PRN 06/11/20 06/11/20 History Acetaminophen [Tylenol] 650 mg PO TID@0700,1300,209906/11/20 06/11/20 History Atorvastatin Calcium [Lipitor] 40 mg PO HS@209906/11/20 06/11/20 History Benzocaine 20 % Gel [Orajel] 1 applic DENTAL Q4H PRN 06/11/20 06/11/20 History DULoxetine HCL [Cymbalta] 60 mg PO DAILY@69906/11/20 06/11/20 History INSULIN ASPART (NovoLOG) [NovoLOG See Protocol SQ ACHS 06/11/20 06/11/20 History (formulary)] Ibuprofen [Motrin Ib] 400 mg PO BID@0700,1700 06/11/20 06/11/20 History Magnesium Hydroxide [Milk of 2,400 mg PO Q48H PRN 06/11/20 06/11/20 History Magnesia] Menthol [Biofreeze] 1 applic TOPICAL Q4H PRN 06/11/20 06/11/20 History Na Phos,M-B/Na Phos,Di-Ba [Fleet 133 ml RECTAL Q96H PRN 06/11/20 06/11/20 History Adult] Omeprazole 20 mg PO DAILY@0500 06/11/20 06/11/20 History bisacodyL [Bisacodyl] 10 mg RECTAL DAILY PRN 06/11/20 06/11/20 History guaiFENesin [Diabetic Tussin Ex] 200 mg PO Q4H PRN 06/11/20 06/11/20 History Allergies Allergy/AdvReac Type Severity Reaction Status Date / Time clopidogrel [From Plavix] Allergy Rash/Hives Verified 06/11/20 18:57 morphine Allergy Itching Verified 06/11/20 18:57 Physical Exam Vitals: Vital Signs Temp Pulse Pulse Resp BP BP Pulse Ox 06/12/20 06:12 98.1 F 95 18 119/73 96 06/11/20 22:34 97.8 F 97 20 137/86 98 06/11/20 20:26 97.8 F 89 16 143/87 98 06/11/20 19:26 89 18 109/70 98 06/11/20 19:00 98.3 F 88 16 142/90 99 06/11/20 17:37 98.0 F 89 17 133/86 99 Intake and Output 06/11/20 06/12/20 06/12/20 22:59 06:59 14:59 Intake Total 1040 Balance 1040 Intake: Intake, IV Titration 1040 Amount Sodium Chloride 0.9% 1, 1040 000 ml @ 130 mls/hr IV . [facility] Rx#:[id number] Other: Voiding Method Diaper Diaper Incontinent Incontinent Weight 140.614 kg Results CBC & Chem 7: 06/11/20 17:45 06/11/20 17:45 Labs: Abnormal Lab Results - Last 24 Hours (Table) 06/11/20 06/11/20 06/11/20 Range/Units 17:45 17:45 17:45 RBC 4.10 L (4.30-5.90) m/uL MCV 104.3 H (80.0-100.0) fL MCH 35.7 H (25.0-35.0) pg Sodium 136 L (137-145) mmol/L BUN 23 H (9-20) mg/dL Glucose 147 H (74-99) mg/dL POC Glucose (mg/dL) (75-99) mg/dL Plasma Lactic Acid Héctor 2.6 H* (0.7-2.0) mmol/L Ferritin 506.1 H (22.0-322.0) ng/mL 06/11/20 06/11/20 06/12/20 Range/Units 21:10 23:57 07:49 RBC (4.30-5.90) m/uL MCV (80.0-100.0) fL MCH (25.0-35.0) pg Sodium (137-145) mmol/L BUN (9-20) mg/dL Glucose (74-99) mg/dL POC Glucose (mg/dL) 179 H 172 H (75-99) mg/dL Plasma Lactic Acid Héctor 2.3 H* (0.7-2.0) mmol/L Ferritin (22.0-322.0) ng/mL Thrombosis Risk Factor Assmnt - Choose All That Apply Any of the Below Risk Factors Present?: Yes Each Factor Represents 1 point: Obesity (BMI >25), Serious lung disease incl. p neumonia (< 1month) Other Risk Factors: Yes Each Risk Factor Represents 2 Points: Age 61-74 years Other congenital or acquired thrombophilia - If yes, enter type in comment: No Thrombosis Risk Factor Assessment Total Risk Factor Score: 4 Thrombosis Risk Factor Assessment Level: Moderate Risk
[2020-06-12] MEDS ORDERED: INSULIN DETEMIR (LEVEMIR) 100 UNIT/ML SYR SQ SCH (21:00)
[2020-06-12] MEDS: INSULIN DETEMIR (LEVEMIR) 100 UNIT/ML SYR SQ SCH (21:03)
[2020-06-13] MEDS: HEPARIN SODIUM,PORCINE 5,000 UNIT/ML 1 ML VIAL SQ SCH ×3 (00:58→17:41)
[2020-06-13] MEDS: SODIUM CHLORIDE 0.9% 1,000 ML IV SCH ×3 (04:48→17:25)
[2020-06-13] MEDS: PANTOPRAZOLE 40 MG TABLET PO SCH (05:24)
[2020-06-13 07:28] LABS: Glucose,Whole Blood 163 mg/dL (75-99)
[2020-06-13] MEDS: INSULIN ASPART (NovoLOG) 100 UNIT/ML VIAL SQ SCH ×5 (09:07→23:08)
[2020-06-13] MEDS: metFORMIN 500 MG TAB PO SCH ×2 (09:12→23:09)
[2020-06-13] MEDS: ATORVASTATIN 20 MG TAB PO SCH (09:13)
[2020-06-13] MEDS: DULoxetine HCL 30 MG CAPSULE.DR PO SCH (09:13)
[2020-06-13] MEDS: ASPIRIN 81 MG PO SCH (09:13)
[2020-06-13] MEDS: POTASSIUM CHLORIDE ER 20 MEQ TAB.ER PO SCH ×2 (09:13→23:09)
[2020-06-13] MEDS: METOPROLOL TARTRATE 50 MG TAB PO SCH ×2 (09:13→23:09)
[2020-06-13] MEDS: FUROSEMIDE 40 MG TAB PO SCH ×2 (09:13→23:09)
[2020-06-13] MEDS: NIFEdipine XL 30 MG TAB.ER.24 PO SCH (09:14)
[2020-06-13] MEDS: OXYBUTYNIN CHLORIDE 5 MG TAB PO SCH ×2 (09:14→23:10)
[2020-06-13] MEDS: PARoxetine 20 MG TAB PO SCH (09:14)
[2020-06-13] MEDS: IBUPROFEN 400 MG TAB PO SCH ×2 (09:37→17:41)
[2020-06-13 11:35] LABS: Glucose,Whole Blood 207 mg/dL (75-99)
[2020-06-13] MEDS ORDERED: LACTULOSE 20 GM/30 ML CUP PO ONE (11:45)
--- NOTE | 2020-06-13 16:43 | P.PN ---
Progress Note - Text Progress Note Date: 06/13/20 Chief Complaint: COVID positive History of presenting complaint: This is a pleasant 69-year-old patient who is at [facility] being followed by Dr. Allan Miranda. Chronic stable medical conditions include diabetes, GERD, hyperlipidemia, hypertension, osteoarthritis, arthritis sleep apnea, hemorrhoids, neurogenic bladder with incontinence of urine, peripheral neuropathy, hard of hearing,. Normally uses a wheelchair. Tested positive for COVID 19. His rehab facility has no arrangements for the same. Has patient is transferred down here. Patient have had a low-grade fever. No cough or shortness of breath. Appetite is fair. Eating well. No loss of taste or smell. No diarrhea Admitted with-asymptomatic COVID 19 positive Today-laying in bed. Comfortable. Breathing is stable. Eating well. No fever no chills. Constipated Review of systems: Was done for constitutional, cardiovascular, GI, pulmonary. relevant finding as above Active Medications Acetaminophen (Acetaminophen Tab 500 Mg Tab) 1,000 mg PO Q6HR PRN PRN Reason: Fever>101 Last Admin: 06/13/20 00:57 Dose: 1,000 mg Documented by: Aspirin (Aspirin 81 Mg) 81 mg PO DAILY@0700 [facility] Last Admin: 06/13/20 09:13 Dose: 81 mg Documented by: Atorvastatin Calcium (Atorvastatin 20 Mg Tab) 20 mg PO DAILY [facility] Last Admin: 06/13/20 09:13 Dose: 20 mg Documented by: Benzocaine (Benzocaine 20 % Gel 15 Gm Tube) 1 gm MM Q4H PRN PRN Reason: tooth pain/broken teeth Bisacodyl (Bisacodyl 10 Mg Supp) 10 mg RECTAL DAILY PRN PRN Reason: Constipation Duloxetine HCl (Duloxetine Hcl 30 Mg Capsule.) 90 mg PO DAILY@0700 [facility] Last Admin: 06/13/20 09:13 Dose: 90 mg Documented by: Furosemide (Furosemide 40 Mg Tab) 40 mg PO BID [facility] Last Admin: 06/13/20 09:13 Dose: 40 mg Documented by: Heparin Sodium (Porcine) (Heparin Sodium,Porcine 5,000 Unit/Ml 1 Ml Vial) 5,000 unit SQ Q8HR [facility] Last Admin: 06/13/20 09:12 Dose: 5,000 unit Documented by: Sodium Chloride (Saline 0.9%) 1,000 mls @ 130 mls/hr IV .Q7H42M [facility] Last Admin: 06/13/20 11:40 Dose: 130 mls/hr Documented by: Ibuprofen (Ibuprofen 400 Mg Tab) 400 mg PO BID@0700,1700 [facility] Last Admin: 06/13/20 09:37 Dose: 400 mg Documented by: Insulin Aspart (Insulin Aspart (Novolog) 100 Unit/Ml Vial) 0 unit SQ ACHS [facility]; Protocol Last Admin: 06/13/20 13:20 Dose: 4 unit Documented by: Insulin Detemir (Insulin Detemir (Levemir) 100 Unit/Ml Syr) 30 unit SQ HS@2100 [facility] Last Admin: 06/12/20 21:03 Dose: 30 unit Documented by: Losartan Potassium (Losartan 50 Mg Tab) 100 mg PO HS [facility] Last Admin: 06/12/20 21:03 Dose: 100 mg Documented by: Metformin HCl (Metformin 500 Mg Tab) 1,000 mg PO BID [facility] Last Admin: 06/13/20 09:12 Dose: 1,000 mg Documented by: Metoprolol Tartrate (Metoprolol Tartrate 50 Mg Tab) 100 mg PO BID [facility] Last Admin: 06/13/20 09:13 Dose: 100 mg Documented by: Naloxone HCl (Naloxone 0.4 Mg/Ml 1 Ml Vial) 0.2 mg IV Q2M PRN PRN Reason: Opioid Reversal Nifedipine (Nifedipine Xl 30 Mg Tab.Er.24) 30 mg PO DAILY [facility] Last Admin: 06/13/20 09:14 Dose: 30 mg Documented by: Oxybutynin Chloride (Oxybutynin Chloride 5 Mg Tab) 5 mg PO BID [facility] Last Admin: 06/13/20 09:14 Dose: 5 mg Documented by: Pantoprazole Sodium (Pantoprazole 40 Mg Tablet) 40 mg PO DAILY@0500 [facility] Last Admin: 06/13/20 05:24 Dose: 40 mg Documented by: Paroxetine HCl (Paroxetine 20 Mg Tab) 40 mg PO DAILY [facility] Last Admin: 06/13/20 09:14 Dose: 40 mg Documented by: Potassium Chloride (Potassium Chloride Er 20 Meq Tab.Er) 20 meq PO BID [facility] Last Admin: 06/13/20 09:13 Dose: 20 meq Documented by: Physical examination: VITAL SIGNS: 98.1, 84, 18, 136/86, 90% room air GENERAL:, laying in bed, comfortable. EYES: Pupils equal. Conjunctiva normal. NECK: JVD not raised; masses not palpable. HEART: First and second heart sounds are normal; no edema. LUNGS: Respiratory rate normal; clear to auscultation. ABDOMEN: Soft, nontender, liver spleen not palpable, no masses palpable. PSYCH: Alert and oriented x3; mood and affect normal. INVESTIGATIONS, reviewed in the clinical context: White count 4.5 hemoglobin 14.6 platelets 185 potassium 4.4 creatinine 0.76 Lactic acid 2.6 ferritin 506 CRP 9.1 pro-calcitonin 0.07 Influenza type A and type B both negative EKG tracing personally reviewed by me-sinus rhythm, left bundle-branch block Chest x-ray film personally reviewed by me-possible atelectasis Assessment: -Acute COVID 19 PCR positive. Patient is asymptomatic. No diarrhea, no shortness breath, no changes taste or smell no headache. -Diabetes mellitus type 2 -GERD -Hyperlipidemia -Essential hypertension -Primary osteoarthritis -BPH -Obstructive sleep apnea -Chronic Urinary incontinence probably from neurogenic bladder due to damage from back surgery -Peripheral neuropathy -Hard of hearing and uses hearing aids -Chronic gait dysfunction uses a wheelchair Plan: Stable. Continue current medication treatment plan.
[2020-06-13 17:25] LABS: Glucose,Whole Blood 154 mg/dL (75-99)
[2020-06-13 20:07] LABS: Glucose,Whole Blood 154 mg/dL (75-99)
[2020-06-13] MEDS: LOSARTAN 50 MG TAB PO SCH (23:09)
[2020-06-13] MEDS: INSULIN DETEMIR (LEVEMIR) 100 UNIT/ML SYR SQ SCH (23:20)
[2020-06-14] MEDS: HEPARIN SODIUM,PORCINE 5,000 UNIT/ML 1 ML VIAL SQ SCH ×3 (01:09→18:23)
[2020-06-14] MEDS: SODIUM CHLORIDE 0.9% 1,000 ML IV SCH ×3 (03:04→18:24)
[2020-06-14] MEDS: PANTOPRAZOLE 40 MG TABLET PO SCH (05:53)
[2020-06-14 07:29] LABS: Glucose,Whole Blood 188 mg/dL (75-99)
[2020-06-14] MEDS: ASPIRIN 81 MG PO SCH (08:15)
[2020-06-14] MEDS: NIFEdipine XL 30 MG TAB.ER.24 PO SCH (08:16)
[2020-06-14] MEDS: DULoxetine HCL 30 MG CAPSULE.DR PO SCH (08:16)
[2020-06-14] MEDS: POTASSIUM CHLORIDE ER 20 MEQ TAB.ER PO SCH ×2 (08:16→21:33)
[2020-06-14] MEDS: IBUPROFEN 400 MG TAB PO SCH ×2 (08:17→18:22)
[2020-06-14] MEDS: PARoxetine 20 MG TAB PO SCH (08:17)
[2020-06-14] MEDS: OXYBUTYNIN CHLORIDE 5 MG TAB PO SCH ×2 (08:17→22:40)
[2020-06-14] MEDS: ATORVASTATIN 20 MG TAB PO SCH (08:20)
[2020-06-14] MEDS: FUROSEMIDE 40 MG TAB PO SCH ×2 (08:20→21:33)
[2020-06-14] MEDS: metFORMIN 500 MG TAB PO SCH ×2 (08:21→21:34)
[2020-06-14] MEDS: METOPROLOL TARTRATE 50 MG TAB PO SCH ×2 (08:21→21:33)
[2020-06-14] MEDS: INSULIN ASPART (NovoLOG) 100 UNIT/ML VIAL SQ SCH ×4 (08:36→21:34)
[2020-06-14 12:10] LABS: Glucose,Whole Blood 137 mg/dL (75-99)
[2020-06-14 17:45] LABS: Glucose,Whole Blood 263 mg/dL (75-99)
[2020-06-14 20:00] LABS: Glucose,Whole Blood 159 mg/dL (75-99)
--- NOTE | 2020-06-14 20:13 | P.PN ---
Progress Note - Text Progress Note Date: 06/14/20 Chief Complaint: COVID positive History of presenting complaint: This is a pleasant 69-year-old patient who is at [facility] being followed by Dr. Allan Miranda. Chronic stable medical conditions include diabetes, GERD, hyperlipidemia, hypertension, osteoarthritis, arthritis sleep apnea, hemorrhoids, neurogenic bladder with incontinence of urine, peripheral neuropathy, hard of hearing,. Normally uses a wheelchair. Tested positive for COVID 19. His rehab facility has no arrangements for the same. Has patient is transferred down here. Patient have had a low-grade fever. No cough or shortness of breath. Appetite is fair. Eating well. No loss of taste or smell. No diarrhea Admitted with-asymptomatic COVID 19 positive Today-laying in bed. Comfortable. No new issues. Eating well. No Mayra symptoms. Review of systems: Was done for constitutional, cardiovascular, GI, pulmonary. relevant finding as above Active Medications Acetaminophen (Acetaminophen Tab 500 Mg Tab) 1,000 mg PO Q6HR PRN PRN Reason: Fever>101 Last Admin: 06/13/20 00:57 Dose: 1,000 mg Documented by: Aspirin (Aspirin 81 Mg) 81 mg PO DAILY@0700 [facility] Last Admin: 06/14/20 08:15 Dose: 81 mg Documented by: Atorvastatin Calcium (Atorvastatin 20 Mg Tab) 20 mg PO DAILY [facility] Last Admin: 06/14/20 08:20 Dose: 20 mg Documented by: Benzocaine (Benzocaine 20 % Gel 15 Gm Tube) 1 gm MM Q4H PRN PRN Reason: tooth pain/broken teeth Bisacodyl (Bisacodyl 10 Mg Supp) 10 mg RECTAL DAILY PRN PRN Reason: Constipation Duloxetine HCl (Duloxetine Hcl 30 Mg Capsule.) 90 mg PO DAILY@0700 [facility] Last Admin: 06/14/20 08:16 Dose: 90 mg Documented by: Furosemide (Furosemide 40 Mg Tab) 40 mg PO BID [facility] Last Admin: 06/14/20 08:20 Dose: 40 mg Documented by: Heparin Sodium (Porcine) (Heparin Sodium,Porcine 5,000 Unit/Ml 1 Ml Vial) 5,000 unit SQ Q8HR [facility] Last Admin: 06/14/20 18:23 Dose: 5,000 unit Documented by: Sodium Chloride (Saline 0.9%) 1,000 mls @ 130 mls/hr IV .Q7H42M [facility] Last Admin: 06/14/20 18:24 Dose: Not Given Documented by: Ibuprofen (Ibuprofen 400 Mg Tab) 400 mg PO BID@0700,1700 [facility] Last Admin: 06/14/20 18:22 Dose: 400 mg Documented by: Insulin Aspart (Insulin Aspart (Novolog) 100 Unit/Ml Vial) 0 unit SQ ACHS [facility]; Protocol Last Admin: 06/14/20 18:23 Dose: 6 unit Documented by: Insulin Detemir (Insulin Detemir (Levemir) 100 Unit/Ml Syr) 30 unit SQ HS@2100 [facility] Last Admin: 06/13/20 23:20 Dose: 30 unit Documented by: Losartan Potassium (Losartan 50 Mg Tab) 100 mg PO HS [facility] Last Admin: 06/13/20 23:09 Dose: 100 mg Documented by: Metformin HCl (Metformin 500 Mg Tab) 1,000 mg PO BID [facility] Last Admin: 06/14/20 08:21 Dose: 1,000 mg Documented by: Metoprolol Tartrate (Metoprolol Tartrate 50 Mg Tab) 100 mg PO BID [facility] Last Admin: 06/14/20 08:21 Dose: 100 mg Documented by: Naloxone HCl (Naloxone 0.4 Mg/Ml 1 Ml Vial) 0.2 mg IV Q2M PRN PRN Reason: Opioid Reversal Nifedipine (Nifedipine Xl 30 Mg Tab.Er.24) 30 mg PO DAILY [facility] Last Admin: 06/14/20 08:16 Dose: 30 mg Documented by: Oxybutynin Chloride (Oxybutynin Chloride 5 Mg Tab) 5 mg PO BID [facility] Last Admin: 06/14/20 08:17 Dose: 5 mg Documented by: Pantoprazole Sodium (Pantoprazole 40 Mg Tablet) 40 mg PO DAILY@0500 [facility] Last Admin: 06/14/20 05:53 Dose: 40 mg Documented by: Paroxetine HCl (Paroxetine 20 Mg Tab) 40 mg PO DAILY [facility] Last Admin: 06/14/20 08:17 Dose: 40 mg Documented by: Potassium Chloride (Potassium Chloride Er 20 Meq Tab.Er) 20 meq PO BID [facility] Last Admin: 06/14/20 08:16 Dose: 20 meq Documented by: Physical examination: VITAL SIGNS: 97.4, 77, 16, 131/77, 95% room air GENERAL:, laying in bed, comfortable. EYES: Pupils equal. Conjunctiva normal. NECK: JVD not raised; masses not palpable. HEART: First and second heart sounds are normal; no edema. LUNGS: Respiratory rate normal; clear to auscultation. ABDOMEN: Soft, nontender, liver spleen not palpable, no masses palpable. PSYCH: Alert and oriented x3; mood and affect normal. INVESTIGATIONS, reviewed in the clinical context: White count 4.5 hemoglobin 14.6 platelets 185 potassium 4.4 creatinine 0.76 Lactic acid 2.6 ferritin 506 CRP 9.1 pro-calcitonin 0.07 Influenza type A and type B both negative EKG tracing personally reviewed by me-sinus rhythm, left bundle-branch block Chest x-ray film personally reviewed by me-possible atelectasis Assessment: -Acute COVID 19 PCR positive. Patient is asymptomatic. No diarrhea, no shortness breath, no changes taste or smell, no headache. -Diabetes mellitus type 2 -GERD -Hyperlipidemia -Essential hypertension -Primary osteoarthritis -BPH -Obstructive sleep apnea -Chronic Urinary incontinence probably from neurogenic bladder due to damage from back surgery -Peripheral neuropathy -Hard of hearing and uses hearing aids -Chronic gait dysfunction uses a wheelchair Plan: Stable. Continue current medication treatment plan. COVID 19 PCR testing pending from June 11.
[2020-06-14] MEDS: LOSARTAN 50 MG TAB PO SCH (21:32)
[2020-06-14] MEDS: INSULIN DETEMIR (LEVEMIR) 100 UNIT/ML SYR SQ SCH (21:34)
[2020-06-15] MEDS: HEPARIN SODIUM,PORCINE 5,000 UNIT/ML 1 ML VIAL SQ SCH ×4 (00:27→23:52)
[2020-06-15] MEDS: SODIUM CHLORIDE 0.9% 1,000 ML IV SCH ×3 (00:28→16:35)
[2020-06-15] MEDS: PANTOPRAZOLE 40 MG TABLET PO SCH (05:16)
[2020-06-15 07:18] LABS: Glucose,Whole Blood 156 mg/dL (75-99)
[2020-06-15] MEDS: DULoxetine HCL 30 MG CAPSULE.DR PO SCH (08:39)
[2020-06-15] MEDS: IBUPROFEN 400 MG TAB PO SCH ×2 (08:39→16:36)
[2020-06-15] MEDS: ASPIRIN 81 MG PO SCH (08:39)
[2020-06-15] MEDS: INSULIN ASPART (NovoLOG) 100 UNIT/ML VIAL SQ SCH ×4 (08:39→21:27)
[2020-06-15] MEDS: metFORMIN 500 MG TAB PO SCH ×2 (08:40→21:27)
[2020-06-15] MEDS: FUROSEMIDE 40 MG TAB PO SCH ×2 (08:40→21:27)
[2020-06-15] MEDS: NIFEdipine XL 30 MG TAB.ER.24 PO SCH (08:40)
[2020-06-15] MEDS: OXYBUTYNIN CHLORIDE 5 MG TAB PO SCH ×2 (08:40→21:28)
[2020-06-15] MEDS: POTASSIUM CHLORIDE ER 20 MEQ TAB.ER PO SCH ×2 (08:40→21:28)
[2020-06-15] MEDS: ATORVASTATIN 20 MG TAB PO SCH (08:40)
[2020-06-15] MEDS: METOPROLOL TARTRATE 50 MG TAB PO SCH ×2 (08:40→21:27)
[2020-06-15] MEDS: PARoxetine 20 MG TAB PO SCH (08:41)
[2020-06-15 11:48] LABS: Glucose,Whole Blood 169 mg/dL (75-99)
--- NOTE | 2020-06-15 16:42 | P.PN ---
Progress Note - Text Progress Note Date: 06/15/20 Chief Complaint: COVID positive History of presenting complaint: This is a pleasant 69-year-old patient who is at [facility] being followed by Dr. Allan Miranda. Chronic stable medical conditions include diabetes, GERD, hyperlipidemia, hypertension, osteoarthritis, arthritis sleep apnea, hemorrhoids, neurogenic bladder with incontinence of urine, peripheral neuropathy, hard of hearing,. Normally uses a wheelchair. Tested positive for COVID 19. His rehab facility has no arrangements for the same. Has patient is transferred down here. Patient have had a low-grade fever. No cough or shortness of breath. Appetite is fair. Eating well. No loss of taste or smell. No diarrhea Admitted with-asymptomatic COVID 19 positive Today-no new symptoms. Eating well. No respiratory symptoms. Comfortable. Review of systems: Was done for constitutional, cardiovascular, GI, pulmonary. relevant finding as above Active Medications Acetaminophen (Acetaminophen Tab 500 Mg Tab) 1,000 mg PO Q6HR PRN PRN Reason: Fever>101 Last Admin: 06/13/20 00:57 Dose: 1,000 mg Documented by: Aspirin (Aspirin 81 Mg) 81 mg PO DAILY@0700 [facility] Last Admin: 06/15/20 08:39 Dose: 81 mg Documented by: Atorvastatin Calcium (Atorvastatin 20 Mg Tab) 20 mg PO DAILY [facility] Last Admin: 06/15/20 08:40 Dose: 20 mg Documented by: Benzocaine (Benzocaine 20 % Gel 15 Gm Tube) 1 gm MM Q4H PRN PRN Reason: tooth pain/broken teeth Bisacodyl (Bisacodyl 10 Mg Supp) 10 mg RECTAL DAILY PRN PRN Reason: Constipation Duloxetine HCl (Duloxetine Hcl 30 Mg Capsule.) 90 mg PO DAILY@0700 [facility] Last Admin: 06/15/20 08:39 Dose: 90 mg Documented by: Furosemide (Furosemide 40 Mg Tab) 40 mg PO BID [facility] Last Admin: 06/15/20 08:40 Dose: 40 mg Documented by: Heparin Sodium (Porcine) (Heparin Sodium,Porcine 5,000 Unit/Ml 1 Ml Vial) 5,000 unit SQ Q8HR [facility] Last Admin: 06/15/20 16:34 Dose: 5,000 unit Documented by: Sodium Chloride (Saline 0.9%) 1,000 mls @ 130 mls/hr IV .Q7H42M [facility] Last Admin: 06/15/20 16:35 Dose: Not Given Documented by: Ibuprofen (Ibuprofen 400 Mg Tab) 400 mg PO BID@0700,1700 [facility] Last Admin: 06/15/20 16:36 Dose: 400 mg Documented by: Insulin Aspart (Insulin Aspart (Novolog) 100 Unit/Ml Vial) 0 unit SQ ACHS [facility]; Protocol Last Admin: 06/15/20 13:07 Dose: 2 unit Documented by: Insulin Detemir (Insulin Detemir (Levemir) 100 Unit/Ml Syr) 30 unit SQ HS@2100 [facility] Last Admin: 06/14/20 21:34 Dose: 30 unit Documented by: Losartan Potassium (Losartan 50 Mg Tab) 100 mg PO HS [facility] Last Admin: 06/14/20 21:32 Dose: 100 mg Documented by: Metformin HCl (Metformin 500 Mg Tab) 1,000 mg PO BID [facility] Last Admin: 06/15/20 08:40 Dose: 1,000 mg Documented by: Metoprolol Tartrate (Metoprolol Tartrate 50 Mg Tab) 100 mg PO BID [facility] Last Admin: 06/15/20 08:40 Dose: 100 mg Documented by: Naloxone HCl (Naloxone 0.4 Mg/Ml 1 Ml Vial) 0.2 mg IV Q2M PRN PRN Reason: Opioid Reversal Nifedipine (Nifedipine Xl 30 Mg Tab.Er.24) 30 mg PO DAILY [facility] Last Admin: 06/15/20 08:40 Dose: 30 mg Documented by: Oxybutynin Chloride (Oxybutynin Chloride 5 Mg Tab) 5 mg PO BID [facility] Last Admin: 06/15/20 08:40 Dose: 5 mg Documented by: Pantoprazole Sodium (Pantoprazole 40 Mg Tablet) 40 mg PO DAILY@0500 [facility] Last Admin: 06/15/20 05:16 Dose: 40 mg Documented by: Paroxetine HCl (Paroxetine 20 Mg Tab) 40 mg PO DAILY [facility] Last Admin: 06/15/20 08:41 Dose: 40 mg Documented by: Potassium Chloride (Potassium Chloride Er 20 Meq Tab.Er) 20 meq PO BID [facility] Last Admin: 06/15/20 08:40 Dose: 20 meq Documented by: Physical examination: VITAL SIGNS: 97.3, 89, 16, 118/73, 95% room air GENERAL:, laying in bed, comfortable. EYES: Pupils equal. Conjunctiva normal. NECK: JVD not raised; masses not palpable. HEART: First and second heart sounds are normal; no edema. LUNGS: Respiratory rate normal; decreased breath sounds ABDOMEN: Soft, nontender, liver spleen not palpable, no masses palpable. PSYCH: Alert and oriented x3; mood and affect normal. INVESTIGATIONS, reviewed in the clinical context: COVID 19 P/Cr-not detected White count 4.5 hemoglobin 14.6 platelets 185 potassium 4.4 creatinine 0.76 Lactic acid 2.6 ferritin 506 CRP 9.1 pro-calcitonin 0.07 Influenza type A and type B both negative EKG tracing personally reviewed by me-sinus rhythm, left bundle-branch block Chest x-ray film personally reviewed by me-possible atelectasis Assessment: -Acute COVID 19 PCR positive. Patient is asymptomatic. No diarrhea, no shortness breath, no changes taste or smell, no headache. Repeat COVID 19 PCR now reported negative -Diabetes mellitus type 2 -GERD -Hyperlipidemia -Essential hypertension -Primary osteoarthritis -BPH -Obstructive sleep apnea -Chronic Urinary incontinence probably from neurogenic bladder due to damage from back surgery -Peripheral neuropathy -Hard of hearing and uses hearing aids -Chronic gait dysfunction uses a wheelchair Plan: There is some logistical issues regarding COVID testing before the ECF and take the patient back.. This is being looked into by psychotherapist social worker. In the meantime discharge was canceled pending acceptance by the rehab place.
[2020-06-15 17:31] LABS: Glucose,Whole Blood 166 mg/dL (75-99)
[2020-06-15 21:20] LABS: Glucose,Whole Blood 155 mg/dL (75-99)
[2020-06-15] MEDS: LOSARTAN 50 MG TAB PO SCH (21:27)
[2020-06-15] MEDS: INSULIN DETEMIR (LEVEMIR) 100 UNIT/ML SYR SQ SCH (21:27)
[2020-06-15 21:48] VITALS: RESP 20
[2020-06-16] MEDS: PANTOPRAZOLE 40 MG TABLET PO SCH (06:00)
[2020-06-16 07:23] LABS: Glucose,Whole Blood 174 mg/dL (75-99)
[2020-06-16] MEDS: ASPIRIN 81 MG PO SCH (08:16)
[2020-06-16] MEDS: FUROSEMIDE 40 MG TAB PO SCH (08:17)
[2020-06-16] MEDS: metFORMIN 500 MG TAB PO SCH (08:17)
[2020-06-16] MEDS: IBUPROFEN 400 MG TAB PO SCH (08:17)
[2020-06-16] MEDS: POTASSIUM CHLORIDE ER 20 MEQ TAB.ER PO SCH (08:17)
[2020-06-16] MEDS: DULoxetine HCL 30 MG CAPSULE.DR PO SCH (08:17)
[2020-06-16] MEDS: METOPROLOL TARTRATE 50 MG TAB PO SCH (08:17)
[2020-06-16] MEDS: ATORVASTATIN 20 MG TAB PO SCH (08:18)
[2020-06-16] MEDS: HEPARIN SODIUM,PORCINE 5,000 UNIT/ML 1 ML VIAL SQ SCH (08:18)
[2020-06-16] MEDS: INSULIN ASPART (NovoLOG) 100 UNIT/ML VIAL SQ SCH ×2 (08:18→11:52)
[2020-06-16] MEDS: NIFEdipine XL 30 MG TAB.ER.24 PO SCH (08:19)
[2020-06-16] MEDS: OXYBUTYNIN CHLORIDE 5 MG TAB PO SCH (08:19)
[2020-06-16] MEDS: PARoxetine 20 MG TAB PO SCH (08:19)
[2020-06-16 11:25] LABS: Glucose,Whole Blood 193 mg/dL (75-99)
[2020-06-16 11:38] VITALS: BP 131/69; PULSE 76; TEMP 98
--- NOTE | 2020-06-16 13:50 | P.DS ---
Providers Date of admission: 06/11/20 19:10 Expected date of discharge: 06/16/20 Attending physician: Yamil Piña Primary care physician: Allan Miranda [facility] Course: Chief Complaint: COVID positive History of presenting complaint: This is a pleasant 69-year-old patient who is at [facility] being followed by Dr. Allan Miranda. Chronic stable medical conditions include diabetes, GERD, hyperlipidemia, hypertension, osteoarthritis, arthritis sleep apnea, hemorrhoids, neurogenic bladder with incontinence of urine, peripheral neuropathy, hard of hearing,. Normally uses a wheelchair. Tested positive for COVID 19. His rehab facility has no arrangements for the same. Has patient is transferred down here. Patient have had a low-grade fever. No cough or shortness of breath. Appetite is fair. Eating well. No loss of taste or smell. No diarrhea Admitted with-asymptomatic COVID 19 positive. Remains stable and asymptomatic here. Repeat COVID testing is negative.. Today-no new symptoms. Eating well. No respiratory complaints. Physical examination: VITAL SIGNS: 98, 76, 20, 131/69, 95% room air GENERAL:, laying in bed, comfortable. EYES: Pupils equal. Conjunctiva normal. NECK: JVD not raised; masses not palpable. HEART: First and second heart sounds are normal; no edema. LUNGS: Respiratory rate normal; decreased breath sounds ABDOMEN: Soft, nontender, liver spleen not palpable, no masses palpable. PSYCH: Alert and oriented x3; mood and affect normal. INVESTIGATIONS, reviewed in the clinical context: COVID 19 P/Cr-not detected-June 15 White count 4.5 hemoglobin 14.6 platelets 185 potassium 4.4 creatinine 0.76 Lactic acid 2.6 ferritin 506 CRP 9.1 pro-calcitonin 0.07 Influenza type A and type B both negative EKG tracing personally reviewed by me-sinus rhythm, left bundle-branch block Chest x-ray film personally reviewed by me-possible atelectasis Assessment: -Acute COVID 19 PCR positive. Patient is asymptomatic. No diarrhea, no shortness breath, no changes taste or smell, no headache. Repeat COVID 19 PCR now negative -Diabetes mellitus type 2 -GERD -Hyperlipidemia -Essential hypertension -Primary osteoarthritis -BPH -Obstructive sleep apnea -Chronic Urinary incontinence probably from neurogenic bladder due to damage from back surgery -Peripheral neuropathy -Hard of hearing and uses hearing aids -Chronic gait dysfunction uses a wheelchair Disposition: ECF/[facility] Patient Condition at Discharge: Fair Plan - Discharge Summary Discharge Rx Participant: No New Discharge Prescriptions: Continue Insulin Detemir (Levemir) [Levemir] 40 unit SQ HS@2100 NIFEdipine XL [Procardia XL] 60 mg PO HS@2100 Furosemide [Lasix] 40 mg PO BID@0700,1300 metFORMIN HCL 1,000 mg PO BID@0700,1700 Metoprolol Tartrate [Lopressor] 100 mg PO BID@0700,2100 Oxybutynin Chloride [Ditropan] 5 mg PO BID@0700,2100 Losartan Potassium [Cozaar] 100 mg PO DAILY@0700 Aspirin 81 mg PO DAILY@0700 Potassium Chloride [Klor-Con 20] 20 meq PO BID@0700,2100 DULoxetine HCL [Cymbalta] 30 mg PO DAILY@0700 Magnesium Hydroxide [Milk of Magnesia] 2,400 mg PO Q48H PRN PRN Reason: Constipation Na Phos,M-B/Na Phos,Di-Ba [Fleet Adult] 133 ml RECTAL Q96H PRN PRN Reason: Constipation guaiFENesin [Diabetic Tussin Ex] 200 mg PO Q4H PRN PRN Reason: Cough bisacodyL [Bisacodyl] 10 mg RECTAL DAILY PRN PRN Reason: Constipation Benzocaine 20 % Gel [Orajel] 1 applic DENTAL Q4H PRN PRN Reason: tooth pain/broken teeth INSULIN ASPART (NovoLOG) [NovoLOG (formulary)] See Protocol SQ ACHS Ibuprofen [Motrin Ib] 400 mg PO BID@0700,1700 Omeprazole 20 mg PO DAILY@0500 Atorvastatin Calcium [Lipitor] 40 mg PO HS@2100 DULoxetine HCL [Cymbalta] 60 mg PO DAILY@0700 Menthol [Biofreeze] 1 applic TOPICAL Q4H PRN PRN Reason: pain to neck,shoulders & R.Hip Changed Acetaminophen [Tylenol] 650 mg PO TID@0700,1300,2100 PRN #0 PRN Reason: Pain Discontinued Acetaminophen Tab [Tylenol] 650 mg PO Q4H PRN PRN Reason: Pain Discharge Medication List Aspirin 81 mg PO DAILY@0700 03/19/15 [History] Furosemide [Lasix] 40 mg PO BID@0700,1300 03/19/15 [History] Insulin Detemir (Levemir) [Levemir] 40 unit SQ HS@209903/19/15 [History] Losartan Potassium [Cozaar] 100 mg PO DAILY@0703/19/15 [History] Metoprolol Tartrate [Lopressor] 100 mg PO BID@0700,209903/19/15 [History] NIFEdipine XL [Procardia XL] 60 mg PO HS@209903/19/15 [History] Oxybutynin Chloride [Ditropan] 5 mg PO BID@0700,209903/19/15 [History] metFORMIN HCL 1,000 mg PO BID@0700,1700 03/19/15 [History] Potassium Chloride [Klor-Con 20] 20 meq PO BID@00,209902/20/17 [History] DULoxetine HCL [Cymbalta] 30 mg PO DAILY@0700 08/15/18 [History] Atorvastatin Calcium [Lipitor] 40 mg PO HS@209906/11/20 [History] Benzocaine 20 % Gel [Orajel] 1 applic DENTAL Q4H PRN 06/11/20 [History] DULoxetine HCL [Cymbalta] 60 mg PO DAILY@0706/11/20 [History] INSULIN ASPART (NovoLOG) [NovoLOG (formulary)] See Protocol SQ ACHS 06/11/20 [History] Ibuprofen [Motrin Ib] 400 mg PO BID@0700,1700 06/11/20 [History] Magnesium Hydroxide [Milk of Magnesia] 2,400 mg PO Q48H PRN 06/11/20 [History] Menthol [Biofreeze] 1 applic TOPICAL Q4H PRN 06/11/20 [History] Na Phos,M-B/Na Phos,Di-Ba [Fleet Adult] 133 ml RECTAL Q96H PRN 06/11/20 [History] Omeprazole 20 mg PO DAILY@0500 06/11/20 [History] bisacodyL [Bisacodyl] 10 mg RECTAL DAILY PRN 06/11/20 [History] guaiFENesin [Diabetic Tussin Ex] 200 mg PO Q4H PRN 06/11/20 [History] Acetaminophen [Tylenol] 650 mg PO TID@0700,1300,2100 PRN #0 06/15/20 [Rx] Follow up Appointment(s)/Referral(s): Allan Miranda MD [Primary Care Provider] - 1-2 days
== END 2020-06-16 17:16 ==
LOC: EC 17:28 → 1SOBS 19:10 → 6NMEDSUR 22:53
PROVIDERS: ADMIT Hospitalist; ATTEND Hospitalist
DX: U07.1 COVID-19 (principal); E11.42 Type 2 diabetes mellitus with diabetic polyneuropathy; E78.5 Hyperlipidemia, unspecified; G47.33 Obstructive sleep apnea (adult) (pediatric); H91.90 Unspecified hearing loss, unspecified ear; I10 Essential (primary) hypertension; K21.9 Gastro-esophageal reflux disease without esophagitis; K64.9 Unspecified hemorrhoids; M19.91 Primary osteoarthritis, unspecified site; N31.9 Neuromuscular dysfunction of bladder, unspecified; N39.498 Other specified urinary incontinence; N40.1 Benign prostatic hyperplasia with lower urinary tract symptoms; M19.90 Unspecified osteoarthritis, unspecified site; Z99.3 Dependence on wheelchair; R26.9 Unspecified abnormalities of gait and mobility; Z97.4 Presence of external hearing-aid; K59.00 Constipation, unspecified; Z87.442 Personal history of urinary calculi; F41.9 Anxiety disorder, unspecified; F32.9 Major depressive disorder, single episode, unspecified; L98.9 Disorder of the skin and subcutaneous tissue, unspecified; I51.7 Cardiomegaly; Z91.81 History of falling; Z79.82 Long term (current) use of aspirin; Z79.899 Other long term (current) drug therapy; Z79.4 Long term (current) use of insulin; Z79.1 Long term (current) use of non-steroidal anti-inflammatories (NSAID); Z88.8 Allergy status to other drugs, medicaments and biological substances; Z88.5 Allergy status to narcotic agent; E66.9 Obesity, unspecified; Z68.42 Body mass index [BMI] 45.0-49.9, adult; S02.5XXA Fracture of tooth (traumatic), initial encounter for closed fracture; Z87.01 Personal history of pneumonia (recurrent); Z86.14 Personal history of Methicillin resistant Staphylococcus aureus infection; Z98.1 Arthrodesis status; Z82.49 Family history of ischemic heart disease and other diseases of the circulatory system; Z83.3 Family history of diabetes mellitus; Z80.8 Family history of malignant neoplasm of other organs or systems; Z84.1 Family history of disorders of kidney and ureter
CPT/HCPCS: 96360; 96361 ×3; 96372 ×5; 99285; 36415; 93005; 85379; 83880; 80053; 82728; 82553; 83605 ×2; 83615; 83735; 84484; 85025; 85610; 85730; 86140; 87040; 87502; 84145; 87635; 71046; G0378 ×7; U0003; J1644 ×5

== ENCOUNTER 2022-10-31 10:17 | Inpatient (IN) | payer MEDICARE, OTHER ==
--- NOTE | 2022-10-31 10:33 | ED ---
General Adult HPI - General Stated complaint: Altered Time Seen by Provider: 10/31/22 10:21 Source: patient, RN notes reviewed, old records reviewed Limitations: altered mental status - History of Present Illness Initial comments: Patient is a pleasant 72-year-old male presenting to the emergency department from nursing facility. Staff had concern regarding patient with increased fatigue and bradycardia. Patient states he feels fine and has no complaints. Patient is a poor historian and answers one word sentences. Patient does admit to feeling drowsy when specifically questioned on this. - Related Data Home Medications Medication Instructions Recorded Confirmed Aspirin 81 mg PO DAILY@69903/19/15 10/31/22 Furosemide [Lasix] 40 mg PO BID@0700,1200 03/19/15 10/31/22 Losartan Potassium [Cozaar] 100 mg PO DAILY@69903/19/15 10/31/22 Potassium Chloride [Klor-Con 20] 20 meq PO BID@0700,209902/20/17 10/31/22 Atorvastatin Calcium [Lipitor] 40 mg PO HS@209906/11/20 10/31/22 Benzocaine 20 % Gel [Orajel] 1 applic DENTAL Q4H PRN 06/11/20 10/31/22 DULoxetine HCL [Cymbalta] 60 mg PO DAILY@69906/11/20 10/31/22 Magnesium Hydroxide [Milk of 2,400 mg PO Q48H PRN 06/11/20 10/31/22 Magnesia] Menthol [Biofreeze] 1 applic TOPICAL Q4H PRN 06/11/20 10/31/22 Omeprazole 20 mg PO DAILY@69906/11/20 10/31/22 Acetaminophen [Tylenol] 650 mg PO TID@0700,1200,209910/31/22 10/31/22 Dulaglutide [Trulicity] 1.5 mg SQ PAYTON@69910/31/22 10/31/22 Ergocalciferol (Vitamin D2) 1,250 mcg PO FR 10/31/22 10/31/22 [Drisdol (50,000 Iu)] Gabapentin 600 mg PO TID@0700,1200,209910/31/22 10/31/22 Insulin Detemir [Levemir Flexpen] 52 units SQ HS@209910/31/22 10/31/22 Insulin Lispro [humaLOG Kwikpen] 4 unit SQ TID-W/MEALS 10/31/22 10/31/22 Metoprolol Succinate (ER) [Toprol 100 mg PO DAILY@0700 10/31/22 10/31/22 Xl] NIFEdipine XL [Procardia XL] 60 mg PO HS@2100 10/31/22 10/31/22 Tolterodine ER [Detrol LA] 4 mg PO DAILY@0700 10/31/22 10/31/22 Allergies Allergy/AdvReac Type Severity Reaction Status Date / Time clopidogrel [From Plavix] Allergy Rash/Hives Verified 10/31/22 10:55 morphine Allergy Itching Verified 10/31/22 10:55 Review of Systems ROS Statement: Those systems with pertinent positive or pertinent negative responses have been documented in the HPI. ROS Other: All systems not noted in ROS Statement are negative. Constitutional: Denies: fever Eyes: Denies: eye pain ENT: Denies: ear pain Respiratory: Denies: cough Cardiovascular: Denies: chest pain Endocrine: Reports: fatigue Gastrointestinal: Denies: nausea Genitourinary: Denies: urgency Musculoskeletal: Denies: back pain Skin: Denies: rash Neurological: Denies: headache Past Medical History Past Medical History: Cancer, Diabetes Mellitus, GERD/Reflux, Hearing Disorder / Deafness, Hyperlipidemia, Hypertension, Osteoarthritis (OA), Prostate Disorder, Skin Disorder, Sleep Apnea/CPAP/BIPAP, Vascular Disorder Additional Past Medical History / Comment(s): IRREG HEART BEAT, HEMORRHOIDS,, STATES ENLARGED HEART., INCONTINENT OF URINE D/T NERVE DAMAGE FROM BACK SURGERY. NEUROPATHY, DDD,, KIDNEY STONES., [place]- HEARING AIDS, , HX OF FALLS, [place] torn ROTATOR CUFFS. , STATES WOUND ON LEFT HEEL AND EDEMA IN LEGS AND FEET- wheelchair History of Any Multi-Drug Resistant Organisms: MRSA Date of last positivie culture/infection: 07/12/17 MDRO Source:: LT HEEL Past Surgical History: Back Surgery, Heart Catheterization Additional Past Surgical History / Comment(s): BACK FUSION, VEIN STRIPPING, surgery on finger after injury(not sure which) Past Anesthesia/Blood Transfusion Reactions: No Reported Reaction Past Psychological History: Anxiety, Depression Additional Psychological History / Comment(s): . Smoking Status: Never smoker Past Alcohol Use History: None Reported Past Drug Use History: None Reported - Past Family History Father Family Medical History: Cancer Additional Family Medical History / Comment(s): CANCEROUS BRAIN TUMOR Mother Family Medical History: Deep Vein Thrombosis (DVT) Sister(s) Family Medical History: Diabetes Mellitus, Myocardial Infarction (HI), Renal Disease General Exam Limitations: altered mental status, physical limitation General appearance: other (Drowsy but arousable to voice) Head exam: Present: atraumatic Eye exam: Present: normal appearance, PERRL, EOMI ENT exam: Present: normal oropharynx Neck exam: Present: normal inspection. Absent: tenderness, meningismus Respiratory exam: Present: normal lung sounds bilaterally Cardiovascular Exam: Present: bradycardia GI/Abdominal exam: Present: soft. Absent: tenderness Extremities exam: Present: normal inspection Neurological exam: Present: other (Drowsy but arousable to voice) Expanded Neurological exam: Present: protecting the airway Patient oriented to: Present: person, place, time Cranial nerves: EOM's Intact: Normal Motor strength exam: RUE: 5, LUE: 5, RLE: 2/1, LLE: 3 Eye Response: (3) open to voice Motor Response: (6) obeys commands Verbal Response: (5) oriented Psychiatric exam: Present: flat affect Skin exam: Present: normal color Course Vital Signs 10/31/22 10/31/22 10/31/22 10:33 11:00 13:27 Temperature 97.5 F L Pulse Rate 54 L 42 L Pulse Rate [ 54 L Social And Political Studies Professor ] Respiratory 17 18 Rate Blood Pressure 143/67 140/76 O2 Sat by Pulse 95 98 Oximetry EKG Findings - EKG Results: EKG: interpreted by ERMD (For screening AV block IN 273. Left bundle branch block.), sinus rhythm, normal axis, normal ST/T EKG shows: bradycardia Medical Decision Making - Medical Decision Making Was pt. sent in by a medical professional or institution (, PA, FORMAL WAITER/WAITRESS, urgent care, hospital, or shelter...) When possible be specific @ -Patient was sent from nursing facility Did you speak to anyone other than the patient for history (EMS, parent, family, police, friend...)? What history was obtained from this source @ -Family did arrive later and is concerned regarding patient's fatigue and drowsiness Did you review nursing and triage notes (agree or disagree)? Why? @ -I reviewed and agree with nursing and triage notes Were old charts reviewed (outside hosp., previous admission, EMS record, old EKG , old radiological studies, urgent care reports/EKG's, shelter records)? Report findings @ -No old charts were reviewed Differential Diagnosis (chest pain, altered mental status, abdominal pain women, abdominal pain men, vaginal bleeding, weakness, fever, dyspnea, syncope, headache, dizziness, GI bleed, back pain, seizure, CVA, palpatations, mental health)? @ -Differential Altered Mental Status: Hypoglycemia, DKA, hypercapnia, ETOH, overdose, CO poisoning, trauma, myxedema coma, HTN encephalopathy, infection, encephalitis, psychosis, intercranial hemorrhage, hepatic encephalopathy, meningitis, CVA, this is not meant to be an all-inclusive list EKG interpreted by me (3pts min.). @ -As above X-rays interpreted by me (1pt min.). @ -Chest x-ray shows right basilar consolidation, possible atelectasis. CT interpreted by me (1pt min.). @ -CT brain report reviewed U/S interpreted by me (1pt. min.). @ -None done What testing was considered but not performed or refused? (CT, X-rays, U/S, labs)? Why? @ -None What meds were considered but not given or refused? Why? @ -None Did you discuss the management of the patient with other professionals (professionals i.e. , PA, FORMAL WAITER/WAITRESS, lab, RT, psych nurse, social and political studies professor, cut and cover line worker, teacher, staff antisubmarine officer, cyanide case hardener)? Give summary @ -Case was discussed with Dr. daniel who will admit covering Dr. Tovar Was smoking cessation discussed for >3mins.? @ -No Was critical care preformed (if so, how long)? @ -No Were there social determinants of health that impacted care today? How? (Homelessness, low income, unemployed, alcoholism, drug addiction, transportation, low edu. Level, literacy, decrease access to med. care, [facility], rehab)? @ -No Was there de-escalation of care discussed even if they declined (Discuss DNR or withdrawal of care, Hospice)? DNR status @ -No What co-morbidities impacted this encounter? (DM, HTN, Smoking, COPD, CAD, Cancer, CVA, ARF, Chemo, Hep., AIDS, mental health diagnosis, sleep apnea, morbid obesity)? @ -None Was patient admitted / discharged? Hospital course, mention meds given and ro adenike, prescriptions, significant lab abnormalities, going to OR and other pertinent info. @ -Patient reevaluated and unchanged. Family updated. Patient will be admitted for antibiotics for urinary tract infection and holding medications that could be related with bradycardia Undiagnosed new problem with uncertain prognosis? @ -No Drug Therapy requiring intensive monitoring for toxicity (Heparin, Nitro, Insulin, Cardizem)? @ -No Were any procedures done? @ -No Diagnosis/symptom? @ -UTI with AMS, bradycardia Acute, or Chronic, or Acute on Chronic? @ -Acute, acute Uncomplicated (without systemic symptoms) or Complicated (systemic symptoms)? @ -default Side effects of treatment? @ -No Exacerbation, Progression, or Severe Exacerbation? @ -No Poses a threat to life or bodily function? How? (Chest pain, [place], HI, pneumonia, PE, COPD, DKA, ARF, appy, cholecystitis, CVA, Diverticulitis, Homicidal, Suicidal, threat to staff... and all critical care pts) @ -No - Lab Data Result diagrams: 10/31/22 10:44 10/31/22 10:44 Lab Results 10/31/22 10/31/22 10/31/22 Range/Units 10:44 10:44 10:44 WBC 4.4 (3.8-10.6) k/uL RBC 3.67 L (4.30-5.90) m/uL Hgb 12.9 L (13.0-17.5) gm/dL Hct 36.8 L (39.0-53.0) % MCV 100.1 H (80.0-100.0) fL MCH 35.1 H (25.0-35.0) pg MCHC 35.0 (31.0-37.0) g/dL RDW 14.0 (11.5-15.5) % Plt Count 155 (150-450) k/uL MPV 8.1 Neutrophils % 62 % Lymphocytes % 23 % Monocytes % 8 % Eosinophils % 3 % Basophils % 0 % Neutrophils # 2.8 (1.3-7.7) k/uL Lymphocytes # 1.0 (1.0-4.8) k/uL Monocytes # 0.3 (0-1.0) k/uL Eosinophils # 0.2 (0-0.7) k/uL Basophils # 0.0 (0-0.2) k/uL Macrocytosis Slight PT 9.7 (9.0-12.0) sec INR 0.9 (<1.2) APTT 24.9 (22.0-30.0) sec Sodium (137-145) mmol/L Potassium (3.5-5.1) mmol/L Chloride (98-107) mmol/L Carbon Dioxide (22-30) mmol/L Anion Gap mmol/L BUN (9-20) mg/dL Creatinine (0.66-1.25) mg/dL Est GFR (CKD-EPI)AfAm (>60 ml/min/1.73 sqM) Est GFR (CKD-EPI)NonAf (>60 ml/min/1.73 sqM) Glucose (74-99) mg/dL POC Glucose (mg/dL) (70-110) mg/dL POC Glu [place] [employer] Blocker ID Calcium (8.4-10.2) mg/dL Total Bilirubin (0.2-1.3) mg/dL AST (17-59) U/L ALT (4-49) U/L Alkaline Phosphatase (38-126) U/L Ammonia (<30) umol/L Troponin I (0.000-0.034) ng/mL Total Protein (6.3-8.2) g/dL Albumin (3.5-5.0) g/dL Urine Color Urine Appearance (Clear) Urine pH (5.0-8.0) Ur Specific [place] (1.001-1.035) Urine Protein (Negative) Urine Glucose (UA) (Negative) Urine Ketones (Negative) Urine Blood (Negative) Urine Nitrite (Negative) Urine Bilirubin (Negative) Urine Urobilinogen (<2.0) mg/dL Ur Leukocyte Esterase (Negative) Urine RBC (0-5) /hpf Urine WBC (0-5) /hpf Ur Squamous Epith Cells (0-4) /hpf Urine Bacteria (None) /hpf Urine Mucus (None) /hpf Urine Yeast (Budding) (None) /hpf Urine Opiates Screen Not Detected (NotDetected) Ur Oxycodone Screen Not Detected (NotDetected) Urine Methadone Screen Not Detected (NotDetected) Ur Propoxyphene Screen Not Detected (NotDetected) Ur Barbiturates Screen Not Detected (NotDetected) U Tricyclic Antidepress Not Detected (NotDetected) Ur Phencyclidine Scrn Not Detected (NotDetected) Ur Amphetamines Screen Not Detected (NotDetected) U Methamphetamines Scrn Not Detected (NotDetected) U Benzodiazepines Scrn Not Detected (NotDetected) Urine Cocaine Screen Not Detected (NotDetected) U Marijuana (THC) Screen Not Detected (NotDetected) Influenza Type A (PCR) (Not Detectd) Influenza Type B (PCR) (Not Detectd) RSV (PCR) (Not Detectd) SARS-CoV-2 (PCR) (Not Detectd) 10/31/22 10/31/22 10/31/22 Range/Units 10:44 10:44 10:44 WBC (3.8-10.6) k/uL RBC (4.30-5.90) m/uL Hgb (13.0-17.5) gm/dL Hct (39.0-53.0) % MCV (80.0-100.0) fL MCH (25.0-35.0) pg MCHC (31.0-37.0) g/dL RDW (11.5-15.5) % Plt Count (150-450) k/uL MPV Neutrophils % % Lymphocytes % % Monocytes % % Eosinophils % % Basophils % % Neutrophils # (1.3-7.7) k/uL Lymphocytes # (1.0-4.8) k/uL Monocytes # (0-1.0) k/uL Eosinophils # (0-0.7) k/uL Basophils # (0-0.2) k/uL Macrocytosis PT (9.0-12.0) sec INR (<1.2) APTT (22.0-30.0) sec Sodium 140 (137-145) mmol/L Potassium 4.7 (3.5-5.1) mmol/L Chloride 107 (98-107) mmol/L Carbon Dioxide 25 (22-30) mmol/L Anion Gap 8 mmol/L BUN 39 H (9-20) mg/dL Creatinine 0.93 (0.66-1.25) mg/dL Est GFR (CKD-EPI)AfAm >90 (>60 ml/min/1.73 sqM) Est GFR (CKD-EPI)NonAf 81 (>60 ml/min/1.73 sqM) Glucose 141 H (74-99) mg/dL POC Glucose (mg/dL) (70-110) mg/dL POC Glu [place] Blocker ID Calcium 9.3 (8.4-10.2) mg/dL Total Bilirubin 0.5 (0.2-1.3) mg/dL AST 24 (17-59) U/L ALT 21 (4-49) U/L Alkaline Phosphatase 73 (38-126) U/L Ammonia (<30) umol/L Troponin I <0.012 (0.000-0.034) ng/mL Total Protein 6.8 (6.3-8.2) g/dL Albumin 3.6 (3.5-5.0) g/dL Urine Color Colorless Urine Appearance Cloudy (Clear) Urine pH 6.5 (5.0-8.0) Ur Specific [place] 1.010 (1.001-1.035) Urine Protein Negative (Negative) Urine Glucose (UA) Negative (Negative) Urine Ketones Negative (Negative) Urine Blood Trace H (Negative) Urine Nitrite Negative (Negative) Urine Bilirubin Negative (Negative) Urine Urobilinogen <2.0 (<2.0) mg/dL Ur Leukocyte Esterase Large H (Negative) Urine RBC 2 (0-5) /hpf Urine WBC 85 H (0-5) /hpf Ur Squamous Epith Cells <1 (0-4) /hpf Urine Bacteria Rare H (None) /hpf Urine Mucus Rare H (None) /hpf Urine Yeast (Budding) Rare H (None) /hpf Urine Opiates Screen (NotDetected) Ur Oxycodone Screen (NotDetected) Urine Methadone Screen (NotDetected) Ur Propoxyphene Screen (NotDetected) Ur Barbiturates Screen (NotDetected) U Tricyclic Antidepress (NotDetected) Ur Phencyclidine Scrn (NotDetected) Ur Amphetamines Screen (NotDetected) U Methamphetamines Scrn (NotDetected) U Benzodiazepines Scrn (NotDetected) Urine Cocaine Screen (NotDetected) U Marijuana (THC) Screen (NotDetected) Influenza Type A (PCR) (Not Detectd) Influenza Type B (PCR) (Not Detectd) RSV (PCR) (Not Detectd) SARS-CoV-2 (PCR) (Not Detectd) 10/31/22 10/31/22 10/31/22 Range/Units 10:44 10:44 13:29 WBC (3.8-10.6) k/uL RBC (4.30-5.90) m/uL Hgb (13.0-17.5) gm/dL Hct (39.0-53.0) % MCV (80.0-100.0) fL MCH (25.0-35.0) pg MCHC (31.0-37.0) g/dL RDW (11.5-15.5) % Plt Count (150-450) k/uL MPV Neutrophils % % Lymphocytes % % Monocytes % % Eosinophils % % Basophils % % Neutrophils # (1.3-7.7) k/uL Lymphocytes # (1.0-4.8) k/uL Monocytes # (0-1.0) k/uL Eosinophils # (0-0.7) k/uL Basophils # (0-0.2) k/uL Macrocytosis PT (9.0-12.0) sec INR (<1.2) APTT (22.0-30.0) sec Sodium (137-145) mmol/L Potassium (3.5-5.1) mmol/L Chloride (98-107) mmol/L Carbon Dioxide (22-30) mmol/L Anion Gap mmol/L BUN (9-20) mg/dL Creatinine (0.66-1.25) mg/dL Est GFR (CKD-EPI)AfAm (>60 ml/min/1.73 sqM) Est GFR (CKD-EPI)NonAf (>60 ml/min/1.73 sqM) Glucose (74-99) mg/dL POC Glucose (mg/dL) 139 H (70-110) mg/dL POC Glu [place] Blocker ID Priya Ryder Calcium (8.4-10.2) mg/dL Total Bilirubin (0.2-1.3) mg/dL AST (17-59) U/L ALT (4-49) U/L Alkaline Phosphatase (38-126) U/L Ammonia <9 (<30) umol/L Troponin I (0.000-0.034) ng/mL Total Protein (6.3-8.2) g/dL Albumin (3.5-5.0) g/dL Urine Color Urine Appearance (Clear) Urine pH (5.0-8.0) Ur Specific [place] (1.001-1.035) Urine Protein (Negative) Urine Glucose (UA) (Negative) Urine Ketones (Negative) Urine Blood (Negative) Urine Nitrite (Negative) Urine Bilirubin (Negative) Urine Urobilinogen (<2.0) mg/dL Ur Leukocyte Esterase (Negative) Urine RBC (0-5) /hpf Urine WBC (0-5) /hpf Ur Squamous Epith Cells (0-4) /hpf Urine Bacteria (None) /hpf Urine Mucus (None) /hpf Urine Yeast (Budding) (None) /hpf Urine Opiates Screen (NotDetected) Ur Oxycodone Screen (NotDetected) Urine Methadone Screen (NotDetected) Ur Propoxyphene Screen (NotDetected) Ur Barbiturates Screen (NotDetected) U Tricyclic Antidepress (NotDetected) Ur Phencyclidine Scrn (NotDetected) Ur Amphetamines Screen (NotDetected) U Methamphetamines Scrn (NotDetected) U Benzodiazepines Scrn (NotDetected) Urine Cocaine Screen (NotDetected) U Marijuana (THC) Screen (NotDetected) Influenza Type A (PCR) Not Detected (Not Detectd) Influenza Type B (PCR) Not Detected (Not Detectd) RSV (PCR) Not Detected (Not Detectd) SARS-CoV-2 (PCR) Not Detected (Not Detectd) Disposition Clinical Impression: UTI (urinary tract infection), Altered mental status, Bradycardia Disposition: ADMITTED IP TO THIS HOSP Is patient prescribed a controlled substance at d/c from ED?: No Referrals: None,Stated [REFERRING] - 1-2 days Time of Disposition: 14:28
--- NOTE | 2022-10-31 11:11 | XR ---
EXAMINATION TYPE: XR chest 1V portable DATE OF EXAM: 10/31/2022 COMPARISON: NONE HISTORY: Altered mental status TECHNIQUE: Single frontal view of the chest is obtained. FINDINGS: Elevated right hemidiaphragm with subsegmental changes at the right lung base. Heart is pr ominent. Atherosclerotic change aorta. No pneumothorax. Hypertrophic changes of the spine. IMPRESSION: 1. Right basilar consolidation favor atelectasis secondary to elevated hemidiaphragm. Correlate for p hrenic nerve paresis.
[2022-10-31 11:15] LABS: Basophils % (A) 0 %; Eosinophils # (A) 0.2 k/uL (0-0.7); Eosinophils % (A) 3 %; HCT 36.8 % (39.0-53.0); HGB 12.9 gm/dL (13.0-17.5); Lymphocytes % (A) 23 %; MCH 35.1 pg (25.0-35.0); MCV 100.1 fL (80.0-100.0); Macrocytosis Slight; Mean Platelet Volume 8.1; Monocytes # (A) 0.3 k/uL (0-1.0); Monocytes % (A) 8 %; Neutrophils # (A) 2.8 k/uL (1.3-7.7); Neutrophils % (A) 62 %; Platelet Count 155 k/uL (150-450); RBC 3.67 m/uL (4.30-5.90); WBC 4.4 k/uL (3.8-10.6)
--- NOTE | 2022-10-31 11:18 | CT ---
EXAMINATION TYPE: CT brain wo con DATE OF EXAM: 10/31/2022 COMPARISON: None HISTORY: ams CT DLP: 1247.8 mGycm Automated exposure control for dose reduction was used. FINDINGS: A mild to moderate generalized degenerative change. There is a small focal hypodensity within the rig ht basal ganglia suggestive of remote lacunar infarct. Cerebellar tonsils low-lying in position corre late for Chiari malformation. No acute intracranial hemorrhage or mass effect. Calvarium grossly inta ct. Orbits are symmetric. Sinuses are clear. Intracranial atherosclerotic changes are noted. 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 NO ACUTE HEMORRHAGE OR MASS EFFECT. IF CONCERN FOR ACUTE ISCHEMIA CORRELATE WITH MRI CLINICALLY WARRANTED. LOW-LYING CEREBELLAR TONSILS CORRELATE FOR CHIARI MALFORMATION.
[2022-10-31 11:41] LABS: INR 0.9 (<1.2); Partial Thromboplastin Time 24.9 sec (22.0-30.0); Prothrombin Time 9.7 sec (9.0-12.0)
[2022-10-31 11:43] LABS: ALT 21 U/L (4-49); AST 24 U/L (17-59); African American GFR (CKD) >90 (>60 ml/min/1.73 sqM); Albumin 3.6 g/dL (3.5-5.0); Alkaline Phosphatase 73 U/L (38-126); Anion Gap 8 mmol/L; Blood Urea Nitrogen 39 mg/dL (9-20); Calcium 9.3 mg/dL (8.4-10.2); Carbon Dioxide 25 mmol/L (22-30); Chloride 107 mmol/L (98-107); Glucose 141 mg/dL (74-99); Non-African American GFR(CKD) 81 (>60 ml/min/1.73 sqM); Potassium 4.7 mmol/L (3.5-5.1); Sodium 140 mmol/L (137-145); Total Bilirubin 0.5 mg/dL (0.2-1.3); Total Protein 6.8 g/dL (6.3-8.2)
[2022-10-31 13:30] LABS: Glucose,Whole Blood 139 mg/dL (70-110)
[2022-10-31 13:40] LABS: Amphetamine Screen,Urine Not Detected (NotDetected); Barbiturate Screen,Urine Not Detected (NotDetected); Benzodiazepines Screen,Urine Not Detected (NotDetected); Cocaine Screen,Urine Not Detected (NotDetected); Methadone Screen, Urine Not Detected (NotDetected); Opiate Screen,Urine Not Detected (NotDetected); Oxycodone Screen, Urine Not Detected (NotDetected); Phencyclidine Screen,Urine Not Detected (NotDetected); Tricyclic Antidepressant,Urine Not Detected (NotDetected); Urn Cannabinoid Scrn Not Detected (NotDetected)
[2022-10-31 13:41] LABS: Appearance,Urine Cloudy (Clear); Bacteria,Urine Rare /hpf; Bilirubin,Urine Negative (Negative); Blood,Urine Trace (Negative); Budding Yeast,Urine Rare /hpf; Color,Urine Colorless; Glucose,Urine (UA) Negative (Negative); Ketones,Urine Negative (Negative); Leukocyte Esterase,Urine Large (Negative); Mucus,Urine Rare /hpf; Nitrite,Urine Negative (Negative); PH, Urine 6.5 (5.0-8.0); Protein,Urine Negative (Negative); RBC,Urine 2 /hpf (0-5); Squamous Epithelial Cell,Urine <1 /hpf (0-4); Urobilinogen,Urine <2.0 mg/dL (<2.0); WBC,Urine 85 /hpf (0-5)
[2022-10-31] MEDS ORDERED: NALOXONE 0.4 MG/ML 1 ML VIAL IV PRN (14:29)
[2022-10-31] MEDS ORDERED: MAGNESIUM HYDROXIDE 2,400 MG/10 ML CUP PO PRN (16:45)
[2022-10-31] MEDS ORDERED: NON FORMULARY DRUG (Menthol [Biofreeze] 89 ML Gel..Ml.) TOPICAL PRN (16:45)
[2022-10-31] MEDS ORDERED: DEXTROSE 50% SYRINGE 50 ML IVP PRN ×2 (16:46)
--- NOTE | 2022-10-31 17:40 | XR ---
EXAMINATION TYPE: XR shoulder complete RT DATE OF EXAM: 10/31/2022 5:33 PM INDICATION: Patient age:Male; 72 years old; Reason for study: rt shoulder pain; COMPARISON: None TECHNIQUE: The right shoulder was examined in AP, internally rotated and scapular Y projections. FINDINGS: Moderate degeneration changes with osteophyte formation joint space narrowing both acromioc lavicular and glenohumeral joints. No evidence of acute osseous pathology, joint dislocation, or soft tissue swelling. The remaining por tions of the visualized chest are unremarkable. IMPRESSION: 1. No acute osseous pathology. 2. Moderate to severe right shoulder osteoarthrosis. Consider MRI for further evaluation.
[2022-10-31 17:50] LABS: Glucose,Whole Blood 132 mg/dL (70-110)
[2022-10-31] MEDS: INSULIN ASPART (NovoLOG) 100 UNIT/ML VIAL SQ SCH ×3 (17:55→20:50)
[2022-10-31] MEDS: FUROSEMIDE 40 MG TAB PO SCH (18:00)
[2022-10-31 20:00] LABS: Glucose,Whole Blood 168 mg/dL (70-110)
[2022-10-31] MEDS: ACETAMINOPHEN TAB 325 MG TAB PO SCH (20:48)
[2022-10-31] MEDS: POTASSIUM CHLORIDE ER 20 MEQ TAB.ER PO SCH (20:49)
[2022-10-31] MEDS: GABAPENTIN 300 MG CAP PO SCH (20:49)
[2022-10-31] MEDS: ATORVASTATIN 40 MG TAB PO SCH (20:50)
[2022-10-31] MEDS: HEPARIN SODIUM,PORCINE/PF 5,000 UNIT/0.5 ML SYRINGE SQ SCH (20:54)
[2022-10-31] MEDS: INSULIN DETEMIR (LEVEMIR) 100 UNIT/ML SYR SQ SCH (20:54)
--- NOTE | 2022-10-31 21:44 | HP ---
HISTORY AND PHYSICAL CHIEF COMPLAINT: Change in mental status. HISTORY OF PRESENT ILLNESS: This is a 72-year-old gentleman with a past medical history of multiple medical problems including diabetes mellitus and GERD, who is an [facility] resident, was noted to have bradycardia. The patient was also confused, and the patient was taken to [facility], and evidence of UTI was noted. Thus, the patient was admitted for further evaluation and treatment. The patient also had sinus bradycardia. The EKG which I reviewed personally showed some left bundle-branch block pattern, and the patient also was on beta-blockers. A chest x-ray which I reviewed personally showed probably right lower lobe consolidation versus atelectasis. A CAT scan of the brain showed degenerative changes and the remote lacunar infarction on the right basal ganglia. There is no history of any fever, rigors, or chills. Most of the history is taken by discussion with the staff and discussion with the ER physician and review of the chart and discussion with the family at the bedside. The patient is unable to give a detailed history. PAST MEDICAL HISTORY: Reviewed includes diabetes mellitus and GERD. Rest of the history and rest of the chart are noted. HOME MEDICATIONS: Also reviewed include nifedipine. Doses and rest of the medication are noted. ALLERGIES: Reviewed include Plavix. FAMILY HISTORY: Could not be taken. SOCIAL HISTORY: Could not be taken. REVIEW OF SYSTEMS: Could not be taken. PHYSICAL EXAMINATION: VITAL SIGNS: Pulse is 43, blood pressure 140/70, respirations 14. HEENT: Conjunctivae are normal. NECK: No jugular venous distention. CARDIOVASCULAR: S1 and S2 muffled. RESPIRATORY: Breath sounds diminished at the bases. Few scattered rhonchi and crackles. ABDOMEN: Soft and nontender. No masses palpable. LEGS: No edema. No swelling. NERVOUS SYSTEM: Diffusely weak. SKIN: No ulcers or rashes. JOINTS: Right shoulder pain and some tenderness on movement. LABORATORY DATA: Reviewed . ASSESSMENT: 1. Change in mental status and possible urinary tract infection with sepsis present on admission. 2. Bradycardia with left bundle-branch block. 3. Right shoulder pain. 4. Diabetes mellitus, type 2. 5. Gastroesophageal reflux disease. 6. Hypertension. 7. Hyperlipidemia. 8. Multiple medical issues. RECOMMENDATIONS: This is a 72-year-old gentleman, who presented with multiple complex medical issues. We will monitor the patient closely. We will admit and initiate broad-spectrum IV antibiotics and follow the cultures. I would also recommend Cardiology evaluation and Infectious Disease evaluation. I would also recommend to monitor blood sugars closely. As far as the bradycardia condition, the exact etiology is unknown. We will stop the beta-blockers, and I would also recommend a set of troponins as well as a 2D echo with Doppler as well as resume the other home medications once they are confirmed. Overall prognosis is extremely guarded because of multiple medical issues, which I discussed with family at the bedside, and I would also recommend right shoulder x-ray and symptomatic treatment for the time being also. Further recommendations to follow. MMODL / IJN: [id number] /
[2022-11-01] MEDS ORDERED: FUROSEMIDE 40 MG TAB PO SCH (07:00)
[2022-11-01 08:27] LABS: Glucose,Whole Blood 96 mg/dL (70-110)
[2022-11-01] MEDS: INSULIN ASPART (NovoLOG) 100 UNIT/ML VIAL SQ SCH ×7 (08:32→20:44)
[2022-11-01 09:04] LABS: Basophils # (A) 0.01 X 10*3/uL (0.00-0.10); Basophils % (A) 0.2 %; Eosinophils # (A) 0.16 X 10*3/uL (0.04-0.35); Eosinophils % (A) 3.2 %; Immature Grans, Automated 0.4 %; Lymphocytes # (A) 1.02 X 10*3/uL (0.90-5.00); Lymphocytes % (A) 20.5 %; MCH 34.3 pg (27.0-32.0); MCHC 33.3 g/dL (32.0-37.0); MCV 102.9 fL (80.0-97.0); Mean Platelet Volume 10.5 fL (9.5-12.2); NRBC Per 100 WBC 0 /100 WBCS (0.0-0.0); Neutrophils # (A) 3.37 X 10*3/uL (1.80-7.70); Neutrophils % (A) 67.7 %; Platelet Count 154 X 10*3/uL (140-440); RDW 13.9 % (11.5-14.5); WBC 4.98 X 10*3/uL (4.50-10.00)
[2022-11-01] MEDS: POTASSIUM CHLORIDE ER 20 MEQ TAB.ER PO SCH ×2 (09:16→20:47)
[2022-11-01] MEDS: ASPIRIN 81 MG PO SCH (09:16)
[2022-11-01] MEDS: PANTOPRAZOLE 40 MG TABLET PO SCH (09:16)
[2022-11-01] MEDS: FUROSEMIDE 40 MG TAB PO SCH ×2 (09:16→12:56)
[2022-11-01] MEDS: DULoxetine HCL 60 MG CAPSULE.DR PO SCH (09:16)
[2022-11-01] MEDS: OXYBUTYNIN 10 MG TAB.ER.24 PO SCH (09:16)
[2022-11-01] MEDS: GABAPENTIN 300 MG CAP PO SCH ×3 (09:16→20:48)
[2022-11-01] MEDS: ACETAMINOPHEN TAB 325 MG TAB PO SCH ×3 (09:17→20:47)
[2022-11-01] MEDS: LOSARTAN 50 MG TAB PO SCH (09:17)
[2022-11-01] MEDS: HEPARIN SODIUM,PORCINE/PF 5,000 UNIT/0.5 ML SYRINGE SQ SCH ×2 (09:17→20:48)
[2022-11-01 09:24] LABS: African American GFR (CKD) 76.2 (60.0-200.0); Albumin 3.7 g/dL (3.8-4.9); Albumin/Globulin Ratio 1.37 (1.60-3.17); Anion Gap 13.4 mmol/L (10.00-18.00); BUN/Creat Ratio 34.91 Ratio (12.00-20.00); Blood Urea Nitrogen 38.4 mg/dL (9.0-27.0); Calcium 9.7 mg/dL (8.7-10.3); Carbon Dioxide 22.6 mmol/L (20.0-27.5); Globulin 2.7 g/dL (1.6-3.3); Non-African American GFR(CKD) 65.8 (60.0-200.0); Potassium 4.4 mmol/L (3.5-5.5); Total Bilirubin 0.2 mg/dL (0.30-1.20); Total Protein 6.4 g/dL (6.2-8.2)
--- NOTE | 2022-11-01 09:40 | P.CRDCN ---
History of Present Illness Consult date: 11/01/22 Reason for Consult (text): Bradycardia History of present illness: History of present illness: This is a 72-year-old male patient with a past medical history of hypertension, hyperlipidemia, diabetes mellitus, gastroesophageal reflux disease, obstructive sleep apnea, degenerative disc disease. Patient states he was seen by Dr. MISHEL Strickland once in the past but unable to locate office notes. Patient came into the hospital from the retirement due to fatigue and tiredness. He denies any lightheadedness or dizziness, no chest pain, no shortness of breath. Patient is seen today in the emergency center waiting for a bed on the [facility] floor. EKG sinus bradycardia with a left bundle branch block, first-degree AV block Chest x-ray: Right basilar consolidation favor atelectasis secondary to elevated hemidiaphragm. Correlate for phrenic nerve paresis. CAT scan of the brain revealed degenerative change with suspect a remote lacunar infarct involving the right basilar ganglia. No acute hemorrhage or mass effect. 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 WBC 4.9, hemoglobin 12, platelet count 154. INR 0.9. Electrolytes normal. BUN 38 creatinine 1.1. Liver function tests within normal limits. ProBNP 99. Hemoglobin A1c 7.3. Urinalysis leukoesterase large and WBC 85. Urine drug screen negative. Influenza A, influenza B, RSV, Covid 19 not detected. Home cardiac medications: Aspirin 81 mg daily, atorvastatin 40 mg at bedtime, Lasix 40 mg twice daily, losartan 100 mg daily, Toprol-XL 100 mg daily, Procardia 60 mg at bedtime, potassium chloride 20 mEq twice daily Review Of Systems: At the time of my evaluation: Constitutional: No fever, no chills. No weakness, fatigue or lethargy. EENT: No headache. No dizziness. Lungs: No shortness of breath, cough, no sputum production. No wheezing. Cardiovascular: No chest pain, no lower extremity edema. No palpitations. No paroxysmal nocturnal dyspnea. No orthopnea. No lightheadedness or dizziness. No syncopal episodes. Abdominal: No abdominal pain. No nausea, vomiting. No diarrhea. No constipation. No bloody or tarry stools. Genitourinary: No dysuria.. No urinary retention. Musculoskeletal: No myalgias. No muscle weakness, no frequent falls. No back pain. No neck pain. Integumentary: No wounds. No rash. No unusual bruising. Neurologic: No aphasia. No facial droop. No change in mentation. No head injury. No headache. Physical examination: Gen: This is a a 72-year-old male. He is resting on the ER stretcher and appears to be comfortable and in no acute distress VS: reviewed HEENT: Head is atraumatic, normocephalic. Pupils equal, round. Sclerae is anicteric. NECK: Supple. No JVD. . LUNGS: Clear to auscultation. No wheezes or rhonchi. No intercostal retractions. HEART: Regular rate and rhythm. No murmur. ABDOMEN: Soft No tenderness. EXTREMITIES: No pedal edema. No calf tenderness. NEUROLOGICAL: Patient is awake, alert and oriented x3. Assessment: Bradycardia Fatigue Hypertension Hyperlipidemia Diabetes mellitus Gastroesophageal reflux disease Obstructive sleep apnea Degenerative disc disease Plan: Resume patient's home medications except for Toprol-XL which is on hold-continue to hold Continue cardiac monitoring Obtain 2-D echocardiogram and Doppler study to assess cardiac structure and function Further recommendations to follow based upon clinical course Thank you kindly for this consultation. Nurse practitioner note has been reviewed, I agree with documented findings and plan of care. Patient was seen and examined. Past Medical History Past Medical History: Cancer, Diabetes Mellitus, GERD/Reflux, Hearing Disorder / Deafness, Hyperlipidemia, Hypertension, Osteoarthritis (OA), Prostate Disorder, Skin Disorder, Sleep Apnea/CPAP/BIPAP, Vascular Disorder Additional Past Medical History / Comment(s): IRREG HEART BEAT, HEMORRHOIDS,, STATES ENLARGED HEART., INCONTINENT OF URINE D/T NERVE DAMAGE FROM BACK SURGERY. NEUROPATHY, DDD,, KIDNEY STONES., AFOGNAK- HEARING AIDS, , HX OF FALLS, [place] torn ROTATOR CUFFS. , STATES WOUND ON LEFT HEEL AND EDEMA IN LEGS AND FEET- wheelchair History of Any Multi-Drug Resistant Organisms: MRSA Date of last positivie culture/infection: 07/12/17 MDRO Source:: LT HEEL Past Surgical History: Back Surgery, Heart Catheterization Additional Past Surgical History / Comment(s): BACK FUSION, VEIN STRIPPING, surgery on finger after injury(not sure which) Past Anesthesia/Blood Transfusion Reactions: No Reported Reaction Past Psychological History: Anxiety, Depression Additional Psychological History / Comment(s): . Smoking Status: Never smoker Past Alcohol Use History: None Reported Past Drug Use History: None Reported - Past Family History Father Family Medical History: Cancer Additional Family Medical History / Comment(s): CANCEROUS BRAIN TUMOR Mother Family Medical History: Deep Vein Thrombosis (DVT) Sister(s) Family Medical History: Diabetes Mellitus, Myocardial Infarction (VT), Renal Disease Medications and Allergies Home Medications Medication Instructions Recorded Confirmed Type Aspirin 81 mg PO DAILY@69903/19/15 10/31/22 History Furosemide [Lasix] 40 mg PO BID@0700,1200 03/19/15 10/31/22 History Losartan Potassium [Cozaar] 100 mg PO DAILY@69903/19/15 10/31/22 History Potassium Chloride [Klor-Con 20] 20 meq PO BID@00,209902/20/17 10/31/22 History Atorvastatin Calcium [Lipitor] 40 mg PO HS@209906/11/20 10/31/22 History Benzocaine 20 % Gel [Orajel] 1 applic DENTAL Q4H PRN 06/11/20 10/31/22 History DULoxetine HCL [Cymbalta] 60 mg PO DAILY@69906/11/20 10/31/22 History Magnesium Hydroxide [Milk of 2,400 mg PO Q48H PRN 06/11/20 10/31/22 History Magnesia] Menthol [Biofreeze] 1 applic TOPICAL Q4H PRN 06/11/20 10/31/22 History Omeprazole 20 mg PO DAILY@69906/11/20 10/31/22 History Acetaminophen [Tylenol] 650 mg PO TID@0700,1200,209910/31/22 10/31/22 History Dulaglutide [Trulicity] 1.5 mg SQ PAYTON@69910/31/22 10/31/22 History Ergocalciferol (Vitamin D2) 1,250 mcg PO FR 10/31/22 10/31/22 History [Drisdol (50,000 Iu)] Gabapentin 600 mg PO TID@0700,1200,209910/31/22 10/31/22 History Insulin Detemir [Levemir Flexpen] 52 units SQ HS@209910/31/22 10/31/22 History Insulin Lispro [humaLOG Kwikpen] 4 unit SQ TID-W/MEALS 10/31/22 10/31/22 History Metoprolol Succinate (ER) [Toprol 100 mg PO DAILY@0700 10/31/22 10/31/22 History Xl] NIFEdipine XL [Procardia XL] 60 mg PO HS@2100 10/31/22 10/31/22 History Tolterodine ER [Detrol LA] 4 mg PO DAILY@0700 10/31/22 10/31/22 History Allergies Allergy/AdvReac Type Severity Reaction Status Date / Time clopidogrel [From Plavix] Allergy Rash/Hives Verified 10/31/22 10:55 morphine Allergy Itching Verified 10/31/22 10:55 Physical Exam Vitals: Vital Signs Temp Pulse Pulse Resp BP Pulse Ox 11/01/22 06:28 58 L 18 137/53 96 11/01/22 05:33 62 18 134/57 96 11/01/22 04:26 57 L 16 95 11/01/22 04:04 57 L 17 132/61 95 11/01/22 03:31 59 L 16 136/72 94 L 11/01/22 02:04 61 18 109/67 95 10/31/22 23:16 56 L 16 111/63 98 10/31/22 21:01 97.6 F 56 L 16 140/72 96 10/31/22 15:00 44 L 14 137/79 10/31/22 14:30 43 L 14 140/77 95 10/31/22 14:00 40 L 16 141/72 95 10/31/22 13:27 42 L 18 140/76 98 10/31/22 13:00 45 L 14 147/72 95 10/31/22 12:30 44 L 14 131/72 95 10/31/22 12:00 44 L 16 142/73 95 10/31/22 11:30 52 L 14 128/70 95 10/31/22 11:00 54 L 10/31/22 10:33 97.5 F L 54 L 17 143/67 95 Results 11/01/22 04:29 11/01/22 04:29 Cardiac Enzymes 10/31/22 10/31/22 Range/Units 10:44 10:44 AST 24 (17-59) U/L Troponin I <0.012 (0.000-0.034) ng/mL Coagulation 10/31/22 Range/Units 10:44 PT 9.7 (9.0-12.0) sec APTT 24.9 (22.0-30.0) sec CBC 10/31/22 Range/Units 10:44 WBC 4.4 (3.8-10.6) k/uL RBC 3.67 L (4.30-5.90) m/uL Hgb 12.9 L (13.0-17.5) gm/dL Hct 36.8 L (39.0-53.0) % Plt Count 155 (150-450) k/uL Comprehensive Metabolic Panel 10/31/22 Range/Units 10:44 Sodium 140 (137-145) mmol/L Potassium 4.7 (3.5-5.1) mmol/L Chloride 107 (98-107) mmol/L Carbon Dioxide 25 (22-30) mmol/L BUN 39 H (9-20) mg/dL Creatinine 0.93 (0.66-1.25) mg/dL Glucose 141 H (74-99) mg/dL Calcium 9.3 (8.4-10.2) mg/dL AST 24 (17-59) U/L ALT 21 (4-49) U/L Alkaline Phosphatase 73 (38-126) U/L Total Protein 6.8 (6.3-8.2) g/dL Albumin 3.6 (3.5-5.0) g/dL Current Medications Generic Name Dose Route Start Last Admin Trade Name Freq PRN Reason Stop Dose Admin Acetaminophen 650 mg 10/31/22 21:00 10/31/22 20:48 Acetaminophen Tab 325 Mg Tab PO 650 mg TID@0700,1200,2100 [facility] Administration Aspirin 81 mg 11/01/22 07:00 Aspirin 81 Mg PO DAILY@0700 [facility] Atorvastatin Calcium 40 mg 10/31/22 21:00 10/31/22 20:50 Atorvastatin 40 Mg Tab PO 40 mg HS@2100 [facility] Administration Dextrose/Water 25 ml 10/31/22 16:46 Dextrose 50% Syringe 50 Ml IVP PER PROTOCOL PRN Hypoglycemia Protocol Dextrose/Water 50 ml 10/31/22 16:46 Dextrose 50% Syringe 50 Ml IVP PER PROTOCOL PRN Hypoglycemia Protocol Duloxetine HCl 60 mg 11/01/22 07:00 Duloxetine Hcl 60 Mg Capsule. PO DAILY@0700 [facility] Ergocalciferol 1,250 mcg 11/03/22 09:00 Ergocalciferol 1,250 Mcg (50,000 Iu) Capsule PO FR JOSE Furosemide 40 mg 10/31/22 16:48 10/31/22 18:00 Furosemide 40 Mg Tab PO 40 mg BID@0700,1200 JO[facility] Administration Gabapentin 600 mg 10/31/22 21:00 10/31/22 20:49 Gabapentin 300 Mg Cap PO 600 mg TID@0700,1200,2100 [facility] Administration Heparin Sodium (Porcine) 5,000 unit 10/31/22 21:00 10/31/22 20:54 Heparin Sodium,Porcine/Pf 5,000 Unit/0.5 Ml Syringe SQ 5,000 unit Q12HR [facility] Administration Ceftriaxone Sodium 1 gm/ 50 mls @ 100 mls/hr 10/31/22 14:30 10/31/22 20:52 Sodium Chloride IVPB 100 mls/hr Q12HR [facility] Administration Protocol Insulin Aspart 4 unit 10/31/22 17:30 10/31/22 18:00 Insulin Aspart (Novolog) 100 Unit/Ml Vial SQ 4 unit TID-W/MEALS [facility] Administration Insulin Aspart 0 unit 10/31/22 17:30 10/31/22 20:50 Insulin Aspart (Novolog) 100 Unit/Ml Vial SQ Not Given ACHS [facility] Protocol Insulin Detemir 52 unit 10/31/22 21:00 10/31/22 20:54 Insulin Detemir (Levemir) 100 Unit/Ml Syr SQ 52 unit HS@2100 [facility] Administration Losartan Potassium 100 mg 11/01/22 07:00 Losartan 50 Mg Tab PO DAILY@0700 [facility] Magnesium Hydroxide 2,400 mg 10/31/22 16:45 Magnesium Hydroxide 2,400 Mg/10 Ml Cup PO Q48H PRN Constipation Naloxone HCl 0.2 mg 10/31/22 14:29 Naloxone 0.4 Mg/Ml 1 Ml Vial IV Q2M PRN Opioid Reversal Nifedipine 60 mg 10/31/22 21:00 10/31/22 20:47 Nifedipine Xl 60 Mg Tab.Er.24 PO 60 mg HS@2100 [facility] Administration Dulaglutide [ 1.5 mg 11/05/22 07:00 Trulicity] 1.5 Mg/0. SQ 5 Ml Each PAYTON@0700 [facility] Oxybutynin Chloride 10 mg 11/01/22 07:00 Oxybutynin 10 Mg Tab.Er.24 PO DAILY@0700 [facility] Pantoprazole Sodium 40 mg 11/01/22 07:00 Pantoprazole 40 Mg Tablet PO DAILY@0700 [facility] Potassium Chloride 20 meq 10/31/22 21:00 10/31/22 20:49 Potassium Chloride Er 20 Meq Tab.Er PO 20 meq BID@0700,2100 [facility] Administration 10/31/22 10:44 10/31/22 10:44
--- NOTE | 2022-11-01 10:46 | CA ---
Transthoracic Echo Report Name: Brian Blanchard Age: 72 Gender: M : 1950 Exam Date: 11/01/2022 06:18 Exam Location: [place] [facility] Ht (in): 67 Wt (lb): 300 Ordering Physician: Dawna Kurtz MD Attending/Referring Phys: Card Dealer Danuta Yu RDCS Procedure CPT: Indications: Bradycardia Cardiac Hx: Technical Quality: Technically difficult study Contrast 1: Total Dose (mL): Contrast 2: Total Dose (mL): MEASUREMENTS (Male / Female) Normal Values 2D ECHO Aorta at Sinotubular Diameter 3.3 cm Ascending Aorta Diameter 4.1 cm Aorta at Sinuses Diameter 4.2 cm M-MODE Aortic Root Diameter MM 4.2 cm AV Cusp Separation MM 2.2 cm DOPPLER AV Peak Velocity 145.7 cm/s AV Peak Gradient 8.5 mmHg LVOT Peak Velocity 94.5 cm/s LVOT Peak Gradient 3.6 mmHg MV Area PHT 3.0 cm??? Mitral E Point Velocity 73.5 cm/s Mitral A Point Velocity 110.4 cm/s Mitral E to A Ratio 0.7 MV Deceleration Time 250.7 ms TR Peak Velocity 309.3 cm/s TR Peak Gradient 38.3 mmHg Right Atrial Pressure 3.0 mmHg Pulmonary Artery Systolic Pressu 41.3 mmHg Right Ventricular Systolic Press 41.3 mmHg FINDINGS Left Ventricle Moderate concentric left ventricular hypertrophy. Grade 1 diastolic dysfunction. Left ventricular ejection fraction is estimated at 50 %. Right Ventricle Mild right ventricular dilatation. Mildly reduced right ventricular global systolic function. Moderate pulmonary hypertension. Right Atrium Right atrium not well visualized. Left Atrium Normal left atrial size. Mitral Valve Mild mitral regurgitation. Aortic Valve Thckened aortic non-cusp. Unable to identify all three cusps. Tricuspid Valve Mild tricuspid regurgitation. Pulmonic Valve Pulmonic valve not well visualized. Pericardium No pericardial or pleural effusion. Aorta Aortic dilatation at the level of the sinuses of valsalva (root). Dilated proximal ascending aorta (tube). CONCLUSIONS Technically difficult study for interpretation Low normal LV systolic function. EF is about 50%. Concentric LVH. Diastolic dysfunction stage I Dilated right ventricle with mildly decreased function. Moderate pulmonary hypertension Poorly visualized aortic valve Mild mitral regurgitation Previewed by: Dr. Chidi Orozco MD (Electronically Signed) Final Date: 01 November 2022 10:45
[2022-11-01 12:57] LABS: Glucose,Whole Blood 99 mg/dL (70-110)
[2022-11-01 17:24] LABS: Glucose,Whole Blood 122 mg/dL (70-110)
[2022-11-01 20:26] LABS: Glucose,Whole Blood 144 mg/dL (70-110)
[2022-11-01] MEDS: ATORVASTATIN 40 MG TAB PO SCH (20:47)
[2022-11-01] MEDS: INSULIN DETEMIR (LEVEMIR) 100 UNIT/ML SYR SQ SCH (20:48)
--- NOTE | 2022-11-01 22:45 | PN ---
PROGRESS NOTE DATE OF SERVICE: 11/01/2022 SUBJECTIVE: This is a 72-year-old gentleman who was admitted with change in mental status and possible acute urinary tract infection with sepsis, is being closely monitored at this time. The patient also has some bradycardia, which is improving at this time. No chest pain. No palpitations. No fever. OBJECTIVE: VITAL SIGNS: Pulse is 65, blood pressure 131/65, respirations 20. CHEST: Clear to auscultation. CARDIOVASCULAR: S1, S2 muffled. ABDOMEN: Soft. NERVOUS SYSTEM: Diffusely weak. LABORATORY DATA: Reviewed. ASSESSMENT: 1. Change in mental status with possible urinary tract infection with sepsis present on admission. 2. Bradycardia with left bundle-branch block. 3. Right shoulder pain. 4. Diabetes mellitus, type 2. 5. Gastroesophageal reflux disease. 6. Hypertension. 7. Hyperlipidemia. 8. Multiple medical issues. 9. Gait dysfunction. 10.Full code. RECOMMENDATIONS AND DISCUSSION: In this 72-year-old gentleman, who presented with multiple complex medical issues, we will monitor the patient closely. Continue the current medications, symptomatic treatment. Otherwise, at this time, I would recommend continue the antibiotics. Closely follow. Otherwise, the patient is on Rocephin. The cultures are negative so far. I would also get Infectious Disease evaluation also. PT, OT evaluation, possible ECF rehab. ZULEMA / PRESLEY: [id number] /
[2022-11-02 06:15] LABS: Glucose,Whole Blood 210 mg/dL (70-110)
[2022-11-02 08:41] LABS: Basophils # (A) 0.01 X 10*3/uL (0.00-0.10); Basophils % (A) 0.2 %; Eosinophils # (A) 0.14 X 10*3/uL (0.04-0.35); Eosinophils % (A) 2.9 %; HCT 37.6 % (39.6-50.0); Immature Grans, Automated 0.4 %; Lymphocytes # (A) 0.96 X 10*3/uL (0.90-5.00); MCH 35.1 pg (27.0-32.0); MCHC 34.6 g/dL (32.0-37.0); MCV 101.6 fL (80.0-97.0); Mean Platelet Volume 10.2 fL (9.5-12.2); Monocytes # (A) 0.58 X 10*3/uL (0.20-1.00); Monocytes % (A) 12.1 %; NRBC Per 100 WBC 0 /100 WBCS (0.0-0.0); Neutrophils # (A) 3.08 X 10*3/uL (1.80-7.70); Neutrophils % (A) 64.4 %; Platelet Count 171 X 10*3/uL (140-440); WBC 4.79 X 10*3/uL (4.50-10.00)
[2022-11-02] MEDS: HEPARIN SODIUM,PORCINE/PF 5,000 UNIT/0.5 ML SYRINGE SQ SCH ×2 (08:49→20:11)
[2022-11-02] MEDS: INSULIN ASPART (NovoLOG) 100 UNIT/ML VIAL SQ SCH ×7 (08:50→20:11)
[2022-11-02] MEDS: ASPIRIN 81 MG PO SCH (08:50)
[2022-11-02] MEDS: GABAPENTIN 300 MG CAP PO SCH ×3 (08:50→20:10)
[2022-11-02] MEDS: LOSARTAN 50 MG TAB PO SCH (08:51)
[2022-11-02] MEDS: PANTOPRAZOLE 40 MG TABLET PO SCH (08:51)
[2022-11-02] MEDS: FUROSEMIDE 40 MG TAB PO SCH ×2 (08:51→12:59)
[2022-11-02] MEDS: POTASSIUM CHLORIDE ER 20 MEQ TAB.ER PO SCH ×2 (08:51→20:10)
[2022-11-02] MEDS: OXYBUTYNIN 10 MG TAB.ER.24 PO SCH (08:51)
[2022-11-02] MEDS: DULoxetine HCL 60 MG CAPSULE.DR PO SCH (08:52)
[2022-11-02] MEDS: ACETAMINOPHEN TAB 325 MG TAB PO SCH ×3 (08:52→20:10)
[2022-11-02 09:49] LABS: African American GFR (CKD) 76.2 (60.0-200.0); Anion Gap 13.9 mmol/L (10.00-18.00); BUN/Creat Ratio 30.91 Ratio (12.00-20.00); Carbon Dioxide 24.1 mmol/L (20.0-27.5); Non-African American GFR(CKD) 65.8 (60.0-200.0); Potassium 4.3 mmol/L (3.5-5.5)
--- NOTE | 2022-11-02 11:50 | P.PN ---
Subjective Progress Note Date: 11/02/22 History of present illness: This is a 72-year-old male patient with a past medical history of hy pertension, hyperlipidemia, diabetes mellitus, gastroesophageal reflux disease, obstructive sleep apnea, degenerative disc disease. Patient states he was seen by Dr. MISHEL Strickland once in the past but unable to locate office notes. Patient came into the hospital from the [facility] due to fatigue and tiredness. He denies any lightheadedness or dizziness, no chest pain, no shortness of breath. [place] wu is seen today in the emergency center waiting for a bed [facility] floor. EKG sinus bradycardia with a left bundle branch block, first-degree AV block Chest x-ray: Right basilar consolidation favor atelectasis secondary to elevated hemidiaphragm. Correlate for phrenic nerve paresis. CAT scan of the brain revealed degenerative change with suspect a remote lacunar infarct involving the right basilar ganglia. No acute hemorrhage or mass effect. 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 WBC 4.9, hemoglobin 12, platelet count 154. INR 0.9. Electrolytes normal. BUN 38 creatinine 1.1. Liver function tests within normal limits. ProBNP 99. Hemoglobin A1c 7.3. Urinalysis leukoesterase large and WBC 85. Urine drug screen negative. Influenza A, influenza B, RSV, Covid 19 not detected. Home cardiac medications: Aspirin 81 mg daily, atorvastatin 40 mg at bedtime, Lasix 40 mg twice daily, losartan 100 mg daily, Toprol-XL 100 mg daily, Procardia 60 mg at bedtime, potassium chloride 20 mEq twice daily 11/02 Toprol-XL has been on hold since patient's admission for bradycardia. Heart rate is now running in the 60s. No telemetry. Echocardiogram revealed EF of 50% with concentric left ventricular hypertrophywith diastolic dysfunction stay, moderate pulmonary hypertension, mild mitral regurgitation, poorly visualized aortic valve Physical examination: Gen: This is a a 72-year-old male. He is resting on the ER stretcher and appears to be comfortable and in no acute distress VS: reviewed HEENT: Head is atraumatic, normocephalic. Pupils equal, round. Sclerae is anicteric. NECK: Supple. No JVD. . LUNGS: Clear to auscultation. No wheezes or rhonchi. No intercostal retractions. HEART: Regular rate and rhythm. No murmur. ABDOMEN: Soft No tenderness. EXTREMITIES: No pedal edema. No calf tenderness. NEUROLOGICAL: Patient is awake, alert and oriented x3. Assessment: Bradycardia Fatigue Hypertension Hyperlipidemia Diabetes mellitus Gastroesophageal reflux disease Obstructive sleep apnea Degenerative disc disease Plan: Resume patient's home medications except for Toprol-XL which is on hold-continue to hold Cardiology will sign off and follow on an as-needed basis. Please reconsult for any new concerns. Nurse practitioner note has been reviewed, I agree with documented findings and plan of care. Patient was seen and examined. Objective - Vital Signs Vital signs: Vital Signs Temp 98.0 F 11/02/22 06:58 Pulse 64 11/02/22 06:58 Resp 18 11/02/22 06:58 BP 160/81 11/02/22 06:58 Pulse Ox 98 11/02/22 06:58 FiO2 Intake & Output 11/01/22 11/02/22 11/02/22 18:59 06:59 18:59 Intake Total 180 Output Total 4900 850 Balance -4720 -850 Weight 136.078 kg Intake: Oral 180 Output: Urine 4900 850 Other: Voiding Method Indwelling Catheter Indwelling Catheter - Labs CBC & Chem 7: 11/02/22 05:29 11/02/22 05:29 Labs: Abnormal Lab Results - Last 24 Hours (Table) 11/01/22 11/01/22 11/01/22 Range/Units 04:29 04:29 17:23 RBC 3.50 L (4.40-5.60) X 10*6/uL Hgb 12.0 L (13.0-17.0) g/dL Hct 36.0 L (39.6-50.0) % MCV 102.9 H (80.0-97.0) fL MCH 34.3 H (27.0-32.0) pg BUN 38.4 H (9.0-27.0) mg/dL BUN/Creatinine Ratio 34.91 H (12.00-20.00) Ratio POC Glucose (mg/dL) 122 H (70-110) mg/dL Total Bilirubin 0.20 L (0.30-1.20) mg/dL Albumin 3.7 L (3.8-4.9) g/dL Albumin/Globulin Ratio 1.37 L (1.60-3.17) g/dL 11/01/22 11/02/22 Range/Units 20:24 06:13 RBC (4.40-5.60) X 10*6/uL Hgb (13.0-17.0) g/dL Hct (39.6-50.0) % MCV (80.0-97.0) fL MCH (27.0-32.0) pg BUN (9.0-27.0) mg/dL BUN/Creatinine Ratio (12.00-20.00) Ratio POC Glucose (mg/dL) 144 H 210 H (70-110) mg/dL Total Bilirubin (0.30-1.20) mg/dL Albumin (3.8-4.9) g/dL Albumin/Globulin Ratio (1.60-3.17) g/dL Microbiology - Last 24 Hours (Table) 10/31/22 10:44 Urine Culture - Preliminary Urine,Voided Gram Neg Bacilli 10/31/22 15:20 Blood Culture - Preliminary Blood No Growth after 24 hours 10/31/22 15:05 Blood Culture - Preliminary Blood No Growth after 24 hours
[2022-11-02 11:53] LABS: Glucose,Whole Blood 151 mg/dL (70-110)
--- NOTE | 2022-11-02 12:59 | CDI ---
Documentation Clarification Form Date: 11/02/2022 12:46:45 PM From: Peggy Francois RN CCDS Phone: [phone] Admit Date: 10/31/2022 2:29:00 PM Patient Name: Brian Blanchard Visit Number: [id number] Discharge Date: ATTENTION: The Clinical Documentation Specialists (CDI) and [facility] Coding Staff appreciate your assistance in clarifying documentation. Please respond to the clarification below the line at the bottom and electronically sign. The CDI & [facility] Coding staff will review the response and follow-up if needed. Please note: Queries are made part of the Legal Health Record. If you have any questions, please contact the author of this message via ITS. Dr. Kurtz Your patient has the documented symptom of Change in Mental Status 10/31, H&P. Additional clarification regarding the etiology/cause of this symptom is requested. History/Risk Factors: 72-year-old male presents to the ED from ECF for bradycardia and confusion. Medical history: DM, HTN, DIANA and GERD. 10/31, H&P. Clinical Indicators: VSS, 10/31: B/P 143/67; Temp 97.5 F Oral; RR 17; SpO2 95% Urine culture: Gram negative Bacilli CXR, 10/31: Right basilar consolidation favor atelectasis secondary to elevated hemidiaphragm. CT Brain, 10/31: Degenerative change with suspect a remote lacunar infarct involving the right basal ganglia. No acute hemorrhage or mass effect. Treatment: 10/31 Ceftriaxone IVPB Q12HR Please clarify the etiology of the symptom of Change in Mental Status: [ ] Metabolic Encephalopathy due to UTI [ ] Other condition (please specify) [ ] Unable to determine (Template Last Revised: September 2020) Metabolic Encephalopathy due to UTI MTDD
--- NOTE | 2022-11-02 13:12 | CDI ---
Documentation Clarification Form Date: 11/02/2022 1:05:29 PM From: Peggy Francois RN CCDS Phone: [phone] Admit Date: 10/31/2022 2:29:00 PM Patient Name: Brian Blanchard Visit Number: [id number] Discharge Date: ATTENTION: The Clinical Documentation Specialists (CDI) and [facility] Coding Staff appreciate your assistance in clarifying documentation. Please respond to the clarification below the line at the bottom and electronically sign. The CDI & [facility] Coding staff will review the response and follow-up if needed. Please note: Queries are made part of the Legal Health Record. If you have any questions, please contact the author of this message via ITS. Dr. Dawna Kurtz Possible Sepsis is documented 10/31, H&P which may lack sufficient clinical evidence/support in the medical record. Additional clarification is requested. History/Risk Factors: 72-year-old male presents to the ED from ECF for bradycardia and confusion. Medical history: DM, HTN, DIANA and GERD. 10/31, H&P. Clinical Indicators: VSS, 10/31: B/P 143/67; Temp 97.5 F Oral; RR 17; SpO2 95% Labs, 10/31: Wbc 4.4 Urine culture: Gram negative Bacilli Blood culture: No growth after 24 hours CXR, 10/31: Right basilar consolidation favor atelectasis secondary to elevated shmuel diaphragm. Treatment: 10/31 Ceftriaxone IVPB Q12HR Please clarify if Sepsis is a valid diagnosis? [ ] Yes, Sepsis is present as evidence by (additional clinical support): [ ] No, Sepsis is ruled out [ ] Other (please specify diagnosis) [ ] Unable to determine (Template Last Revised: October 2020) Unable to determine MTDD
--- NOTE | 2022-11-02 13:32 | CDI ---
Documentation Clarification Form Date: 11/02/2022 1:23:12 PM From: Peggy Francois RN CCDS Phone: [phone] Admit Date: 10/31/2022 2:29:00 PM Patient Name: Brian Blanchard Visit Number: [id number] Discharge Date: ATTENTION: The Clinical Documentation Specialists (CDI) and [facility] Coding Staff appreciate your assistance in clarifying documentation. Please respond to the clarification below the line at the bottom and electronically sign. The CDI & [facility] Coding staff will review the response and follow-up if needed. Please note: Queries are made part of the Legal Health Record. If you have any questions, please contact the author of this message via ITS. Dr. Jerardo Luna coccyx pressure ulcer is documented by Nursing 11/01 in the Integumentary assessment. Based on this information and the findings below, is there an additional diagnosis that is clinically appropriate for this patient? History/Risk Factors: 72-year-old male presents to the ED from [facility] for bradycardia and confusion. Medical history: DM, HTN, DIANA and GERD. 10/31, H&P. Clinical Indicators: Location: Coccyx Wound description: pressure injury Treatment: Absorbant under pad check hourly. One person assist. Is there an additional diagnosis that is clinically appropriate for this patient? [ ] Coccyx Pressure Ulcer Stage 1 [ ] Coccyx Pressure Ulcer Stage 2 [ ] Coccyx Pressure Ulcer ruled out [ ] Other condition, please specify [ ] Unable to determine Clinical Definitions: Stage 1 Pressure Ulcer: intact skin, non-blanching redness of local area Stage 2 Pressure Ulcer: Partial thickness, loss of dermis, pink wound bed Stage 3 Pressure Ulcer: Full thickness tissue loss Stage 4 Pressure Ulcer: Full thickness tissue loss with exposed bone, tendon, or muscle. Unstageable pressure ulcer: Full thickness tissue loss in which the base of the ulcer is covered by slough (yellow, pichardo, pettit, green or brown) and/or eschar (pichardo, brown or black) in the wound bed. (Template Last Revised: October 2020) Coccyx Pressure Ulcer Stage 1 MTDD
[2022-11-02 17:05] LABS: Glucose,Whole Blood 132 mg/dL (70-110)
[2022-11-02 19:30] LABS: Glucose,Whole Blood 186 mg/dL (70-110)
[2022-11-02] MEDS: ATORVASTATIN 40 MG TAB PO SCH (20:10)
[2022-11-02] MEDS: INSULIN DETEMIR (LEVEMIR) 100 UNIT/ML SYR SQ SCH (20:12)
--- NOTE | 2022-11-02 21:07 | PN ---
PROGRESS NOTE DATE OF SERVICE: 11/02/2022 SUBJECTIVE: This is a 72-year-old gentleman who was admitted with change in mental status and possible UTI with sepsis, also had some bradycardia. No chest pain. No palpitations. No fever. The final cultures are showing gram-negative bacilli. OBJECTIVE: VITAL SIGNS: Pulse is 64, blood pressure 160/81, respirations 18. CHEST: A few scattered rhonchi. ABDOMEN: Soft. NERVOUS SYSTEM: Diffusely weak. LABORATORY DATA: Reviewed. ASSESSMENT: 1. Change in mental status with possible acute urinary tract infection with sepsis present on admission with gram-negative bacilli. 2. Bradycardia with left bundle-branch block. 3. Right shoulder pain. 4. Diabetes mellitus, type 2. 5. Multiple medical issues. RECOMMENDATIONS: I recommend to continue current medications. Continue symptomatic treatment. Continue with the antibiotics. Closely follow. Otherwise, await ID of the organism. Further recommendations to follow. MMODL / IJN: [id number] /
--- NOTE | 2022-11-02 21:23 | P.CONS ---
History of Present Illness - Reason for Consult Consult date: 11/02/22 Sepsis Requesting physician: Dawna Kurtz - Chief Complaint Weakness and low heart rate x one day - History of Present Illness Patient is a 72-year-old male with a past medical his significant for hypertension hyperlipidemia diabetes mellitus history of prostate disorder sleep apnea and this patient has been mostly bedbound patient has been sent to the ER from the retirement for evaluation of increased fatigue and low heart rate apparently the patient symptom has been going on for a day or 2 before presentation to the hospital and has been complaining of feeling weak lethargic and no energy patient denies any headache or URI symptoms no chest pain shortn ess of breath did have occasional cough but no sputum production some nausea but no vomiting no abdominal pain or any diarrhea patient did not have complete control of his urine or any sensation related to weight on presentation to the hospital the patient was afebrile and no fever has been recorded subsequently patient did have normal white count kidney function has been normal liver enzymes are normal patient did have a positive UA urine drug screen was negative influenza RSV and COVID testing was negative patient was started on Rocephin infectious disease was consulted for further management of antibiotic therapy patient also noticed to have a sacral pressure ulcer which apparently was pr esent on admission patient currently do not have a significant symptoms to the sacral area as far as pain or drainage is concerned Review of Systems Positive point has been mentioned in the HPI rest of the systems are negative Past Medical History Past Medical History: Cancer, Diabetes Mellitus, GERD/Reflux, Hearing Disorder / Deafness, Hyperlipidemia, Hypertension, Osteoarthritis (OA), Prostate Disorder, Skin Disorder, Sleep Apnea/CPAP/BIPAP, Vascular Disorder Additional Past Medical History / Comment(s): IRREG HEART BEAT, HEMORRHOIDS,, STATES ENLARGED HEART., INCONTINENT OF URINE D/T NERVE DAMAGE FROM BACK SURGERY. NEUROPATHY, DDD,, KIDNEY STONES., HUSLIA- HEARING AIDS, , HX OF FALLS, [place] torn [employer] CUFFS. , STATES WOUND ON LEFT HEEL AND EDEMA IN LEGS AND FEET- wheelchair History of Any Multi-Drug Resistant Organisms: MRSA Year Discovered:: 07/12/17 MDRO Source:: LT HEEL Past Surgical History: Back Surgery, Heart Catheterization Additional Past Surgical History / Comment(s): BACK FUSION, VEIN STRIPPING, surgery on finger after injury(not sure which) Past Anesthesia/Blood Transfusion Reactions: No Reported Reaction Past Psychological History: Anxiety, Depression Additional Psychological History / Comment(s): . Smoking Status: Never smoker Past Alcohol Use History: None Reported Past Drug Use History: None Reported - Past Family History Father Family Medical History: Cancer Additional Family Medical History / Comment(s): CANCEROUS BRAIN TUMOR Mother Family Medical History: Deep Vein Thrombosis (DVT) Sister(s) Family Medical History: Diabetes Mellitus, Myocardial Infarction ([place]), Renal Disease Medications and Allergies Home Medications Medication Instructions Recorded Confirmed Type Aspirin 81 mg PO DAILY@0700 03/19/15 10/31/22 History Furosemide [Lasix] 40 mg PO BID@0700,1200 03/19/15 10/31/22 History Losartan Potassium [Cozaar] 100 mg PO DAILY@00 03/19/15 10/31/22 History Potassium Chloride [Klor-Con 20] 20 meq PO BID@0700,2100 02/20/17 10/31/22 History Atorvastatin Calcium [Lipitor] 40 mg PO HS@209906/11/20 10/31/22 History Benzocaine 20 % Gel [Orajel] 1 applic DENTAL Q4H PRN 06/11/20 10/31/22 History DULoxetine HCL [Cymbalta] 60 mg PO DAILY@0706/11/20 10/31/22 History Magnesium Hydroxide [Milk of 2,400 mg PO Q48H PRN 06/11/20 10/31/22 History Magnesia] Menthol [Biofreeze] 1 applic TOPICAL Q4H PRN 06/11/20 10/31/22 History Omeprazole 20 mg PO DAILY@69906/11/20 10/31/22 History Acetaminophen [Tylenol] 650 mg PO TID@0700,1200,209910/31/22 10/31/22 History Dulaglutide [Trulicity] 1.5 mg SQ PAYTON@69910/31/22 10/31/22 History Ergocalciferol (Vitamin D2) 1,250 mcg PO FR 10/31/22 10/31/22 History [Drisdol (50,000 Iu)] Insulin Detemir [Levemir Flexpen] 52 units SQ HS@209910/31/22 10/31/22 History Insulin Lispro [humaLOG Kwikpen] 4 unit SQ TID-W/MEALS 10/31/22 10/31/22 History NIFEdipine XL [Procardia XL] 60 mg PO HS@2100 10/31/22 10/31/22 History Tolterodine ER [Detrol LA] 4 mg PO DAILY@0700 10/31/22 10/31/22 History Ciprofloxacin HCl [Cipro] 500 mg PO Q12HR 10 Days #20 tablet 11/03/22 Rx Gabapentin 600 mg PO TID@0700,1200,2100 #6 tab 11/03/22 Rx INSULIN ASPART (NovoLOG) [NovoLOG 0 unit SQ ACHS each 11/03/22 Rx (formulary)] Allergies Allergy/AdvReac Type Severity Reaction Status Date / Time clopidogrel [From Plavix] Allergy Rash/Hives Verified 10/31/22 10:55 morphine Allergy Itching Verified 10/31/22 10:55 Physical Exam Vitals: Vital Signs Temp Pulse Resp BP Pulse Ox 11/02/22 06:58 98.0 F 64 18 160/81 98 11/02/22 01:57 98.2 F 81 153/88 95 11/01/22 19:56 98.7 F 65 16 189/71 97 11/01/22 14:00 98.2 F 65 20 131/65 96 Intake and Output 11/01/22 11/02/22 11/02/22 22:59 06:59 14:59 Intake Total 180 118 Output Total 3000 850 Balance -2820 -850 118 Intake: Oral 180 118 Output: Urine 3000 850 Other: Voiding Method Indwelling Catheter GENERAL DESCRIPTION: Elderly male lying in bed, no distress. No tachypnea or accessory muscle of respiration use. HEENT: Shows Pallor , no scleral icterus. Oral mucous membrane is dry. No pharyngeal erythema or thrush NECK: Trachea central, no thyromegaly. LUNGS: Unlabored breathing. Decreased breath sounds at the base. HEART: S1, S2, regular rate and rhythm. No loud murmur ABDOMEN: Soft, no tenderness , guarding or rigidity, no organomegaly EXTREMITIES: No edema of feet. SKIN: No rash, no masses palpable. Stage II sacral pressure ulcer no cellulitis NEUROLOGICAL: The patient is awake, alert, oriented x3, mood and affect normal. Results CBC & Chem 7: 11/02/22 05:29 11/03/22 05:52 Labs: Abnormal Lab Results - Last 24 Hours (Table) 11/01/22 11/01/22 11/02/22 Range/Units 17:23 20:24 05:29 RBC 3.70 L (4.40-5.60) X 10*6/uL Hct 37.6 L (39.6-50.0) % MCV 101.6 H (80.0-97.0) fL MCH 35.1 H (27.0-32.0) pg BUN (9.0-27.0) mg/dL BUN/Creatinine Ratio (12.00-20.00) Ratio Glucose (70-110) mg/dL POC Glucose (mg/dL) 122 H 144 H (70-110) mg/dL 11/02/22 11/02/22 Range/Units 05:29 06:13 RBC (4.40-5.60) X 10*6/uL Hct (39.6-50.0) % MCV (80.0-97.0) fL MCH (27.0-32.0) pg BUN 34.0 H (9.0-27.0) mg/dL BUN/Creatinine Ratio 30.91 H (12.00-20.00) Ratio Glucose 166 H (70-110) mg/dL POC Glucose (mg/dL) 210 H (70-110) mg/dL Microbiology - Last 24 Hours (Table) 10/31/22 10:44 Urine Culture - Preliminary Urine,Voided Gram Neg Bacilli 10/31/22 15:20 Blood Culture - Preliminary Blood No Growth after 24 hours 10/31/22 15:05 Blood Culture - Preliminary Blood No Growth after 24 hours Assessment and Plan (1) Stage II pressure ulcer of sacral region Current Visit: Yes Status: Acute Code(s): L89.152 - PRESSURE ULCER OF SACRAL REGION, STAGE 2 SNOMED Code(s): 28530679940154 (2) UTI (urinary tract infection) Current Visit: Yes Status: Acute Code(s): N39.0 - URINARY TRACT INFECTION, SITE NOT SPECIFIED SNOMED Code(s): 55420008 Plan: 1patient presented to hospital with generalized weakness no energy in this patient noticed to have significantly positive UA concerning for a symptomatic UTI likely from enteric gram-negative pathogen with urine culture showing gram- negative ID sensitivities pending. 2patient with stage II sacral pressure ulcer no evidence of any cellulitis. 3continue with Rocephin while waiting for the culture to finalize. 4local wound care to the sacral wound with dry Aquacel silver dressing change every 48 hour keep the area of the pressure we will follow on clinical condition and cultures to further adjust medication if needed Thank you for this consultation we will follow the patient along with you Time with Patient: Greater than 30
[2022-11-02] MEDS: CEFEPIME 2 GM in SODIUM CHLORIDE 0.9% 100 ML IVPB SCH (22:20)
[2022-11-03 05:36] LABS: Glucose,Whole Blood 193 mg/dL (70-110)
[2022-11-03] MEDS: CEFEPIME 2 GM in SODIUM CHLORIDE 0.9% 100 ML IVPB SCH (05:52)
[2022-11-03] MEDS: INSULIN ASPART (NovoLOG) 100 UNIT/ML VIAL SQ SCH ×4 (05:52→12:43)
[2022-11-03] MEDS: ACETAMINOPHEN TAB 325 MG TAB PO SCH ×2 (07:55→12:41)
[2022-11-03] MEDS: FUROSEMIDE 40 MG TAB PO SCH ×2 (07:55→12:41)
[2022-11-03] MEDS: DULoxetine HCL 60 MG CAPSULE.DR PO SCH (07:56)
[2022-11-03] MEDS: ASPIRIN 81 MG PO SCH (07:56)
[2022-11-03] MEDS: LOSARTAN 50 MG TAB PO SCH (07:57)
[2022-11-03] MEDS: OXYBUTYNIN 10 MG TAB.ER.24 PO SCH (07:57)
[2022-11-03] MEDS: GABAPENTIN 300 MG CAP PO SCH ×2 (07:57→12:42)
[2022-11-03] MEDS: POTASSIUM CHLORIDE ER 20 MEQ TAB.ER PO SCH (07:58)
[2022-11-03] MEDS: HEPARIN SODIUM,PORCINE/PF 5,000 UNIT/0.5 ML SYRINGE SQ SCH (07:58)
[2022-11-03] MEDS: PANTOPRAZOLE 40 MG TABLET PO SCH (07:58)
[2022-11-03 09:00] LABS: African American GFR (CKD) 62.3 (60.0-200.0); Anion Gap 11.6 mmol/L (10.00-18.00); BUN/Creat Ratio 24.69 Ratio (12.00-20.00); Blood Urea Nitrogen 32.1 mg/dL (9.0-27.0); Calcium 9.9 mg/dL (8.7-10.3); Carbon Dioxide 26.4 mmol/L (20.0-27.5); Non-African American GFR(CKD) 53.8 (60.0-200.0); Potassium 4.3 mmol/L (3.5-5.5)
[2022-11-03] MEDS ORDERED: ERGOCALCIFEROL 1,250 MCG (50,000 IU) CAPSULE PO SCH (09:00)
[2022-11-03 11:54] LABS: Glucose,Whole Blood 188 mg/dL (70-110)
--- NOTE | 2022-11-03 13:14 | P.DS ---
Providers Date of admission: 10/31/22 14:29 Expected date of discharge: 11/03/22 Attending physician: Julian Tracy MD Consults: 10/31/22 14:29 Consult Physician Routine Consulting Provider: Michelle Strickland Consult Reason/Comments: bradycardia Do you want consulting provider notified?: Yes 11/01/22 16:23 Consult Physician Routine Consulting Provider: Dakota Barahona Consult Reason/Comments: sepsis Do you want consulting provider notified?: Yes Primary care physician: Nolan Tovar Hospital Course: Final diagnosis Acute metabolic encephalopathy secondary to urinary tract infection, present on admission Possible sepsis with features of sepsis secondary to acute urinary tract infection, present on admission, sepsis ruled out Bradycardia with left bundle branch block Right shoulder pain Diabetes mellitus, type II Coccyx pressure ulcer stage II Hyperlipidemia Line hypertension Osteoarthritis Sleep apnea Anxiety/depression DVT prophylaxis GI prophylaxis Full code Discharge disposition Patient is being discharged in a stable condition with guarded prognosis to [facility]. Patient will follow-up with Dr. Tovar in the outpatient setting upon discharge. Patient is to continue with oral Cipro 500 mg twice daily for the next 10 days and also continue with local wound care per ID recommendations and close outpatient follow-up at the wound care center and also would recommend urology follow-up if trial voiding is unsuccessful in the outpatient setting. Patient did require an indwelling Snow catheter for retention on admission here.. Total time taken is greater than 35 minutes. Hospital course This is a 72-year-old male who was recently admitted with acute altered mental status with UTI with features of sepsis although ruled out and also a coccyx pressure ulcer stage II. ID recommending oral antibiotics in the form of Cipro as urine cultures finalized showing Pseudomonas with multiple sensitivities and will continue 10 days and recommend outpatient follow-up. Patient continue with local wound care and frequent offloading at least every 2 hours with frequent position changes. Recommend monitor Accu-Cheks before meals and at bedtime and continue current regimen. Currently no reports of chest pain, shortness of breath, or palpitations. Patient is afebrile. No reports of nausea or vomiting and patient is tolerating diet. Patient will be going to [facility] today. Guarded prognosis. Physical exam: Gen: This is a 72-year-old male who is awake, alert and oriented 2-3, well- developed, well-nourished, morbidly obese HEENT: Head is atraumatic, normocephalic. Pupils equal, round. Sclerae is anicteric. NECK: Supple. No JVD. No lymphadenopathy. No thyromegaly. LUNGS: Diminished breath sounds bilaterally with No wheezes or rhonchi. No intercostal retractions. HEART: S1, S2 are muffled ABDOMEN: Soft. Bowel sounds are present. No masses. No tenderness. EXTREMITIES: No pedal edema. No calf tenderness. Generalized edema noted on bilateral lower extremities NEUROLOGICAL: Patient is awake, alert and oriented x2. Cranial nerves 2 through 12 are grossly intact. Diffusely weak Please refer to medication reconciliation sheet for a list of medications. The impression and plan of care has been dictated by Elizabeth Saldana, Nurse Practitioner as directed. Dr. Jerardo MD I have performed a history and examination and MDM of this patient, discussed the same with the dictator, and agree with the dictator's assessment and plan as written ,documented as a scribe. Based on total visit time, I have performed more than 50% of the visit. Patient Condition at Discharge: Fair Plan - Discharge Summary New Discharge Prescriptions: New Ciprofloxacin HCl [Cipro] 500 mg PO Q12HR 10 Days #20 tablet INSULIN ASPART (NovoLOG) [NovoLOG (formulary)] 0 unit SQ ACHS each Continue Furosemide [Lasix] 40 mg PO BID@0700,1200 Losartan Potassium [Cozaar] 100 mg PO DAILY@0700 Aspirin 81 mg PO DAILY@0700 Potassium Chloride [Klor-Con 20] 20 meq PO BID@0700,2100 Magnesium Hydroxide [Milk of Magnesia] 2,400 mg PO Q48H PRN PRN Reason: Constipation Benzocaine 20 % Gel [Orajel] 1 applic DENTAL Q4H PRN PRN Reason: tooth pain/broken teeth Omeprazole 20 mg PO DAILY@0700 Atorvastatin Calcium [Lipitor] 40 mg PO HS@2100 DULoxetine HCL [Cymbalta] 60 mg PO DAILY@0700 Menthol [Biofreeze] 1 applic TOPICAL Q4H PRN PRN Reason: pain to neck,shoulders & R.Hip Acetaminophen [Tylenol] 650 mg PO TID@0700,1200,2100 Insulin Detemir [Levemir Flexpen] 52 units SQ HS@2100 Ergocalciferol (Vitamin D2) [Drisdol (50,000 Iu)] 1,250 mcg PO FR NIFEdipine XL [Procardia XL] 60 mg PO HS@2099 Gabapentin 600 mg PO TID@0700,1199,2099 #6 tab Dulaglutide [Trulicity] 1.5 mg SQ PAYTON@0700 Tolterodine ER [Detrol LA] 4 mg PO DAILY@0700 Insulin Lispro [humaLOG Kwikpen] 4 unit SQ TID-W/MEALS Discontinued Metoprolol Succinate (ER) [Toprol Xl] 100 mg PO DAILY@0700 Discharge Medication List Aspirin 81 mg PO DAILY@0703/19/15 [History] Furosemide [Lasix] 40 mg PO BID@0700,1200 03/19/15 [History] Losartan Potassium [Cozaar] 100 mg PO DAILY@69903/19/15 [History] Potassium Chloride [Klor-Con 20] 20 meq PO BID@00,209902/20/17 [History] Atorvastatin Calcium [Lipitor] 40 mg PO HS@209906/11/20 [History] Benzocaine 20 % Gel [Orajel] 1 applic DENTAL Q4H PRN 06/11/20 [History] DULoxetine HCL [Cymbalta] 60 mg PO DAILY@69906/11/20 [History] Magnesium Hydroxide [Milk of Magnesia] 2,400 mg PO Q48H PRN 06/11/20 [History] Menthol [Biofreeze] 1 applic TOPICAL Q4H PRN 06/11/20 [History] Omeprazole 20 mg PO DAILY@69906/11/20 [History] Acetaminophen [Tylenol] 650 mg PO TID@0700,1200,209910/31/22 [History] Dulaglutide [Trulicity] 1.5 mg SQ PAYTON@69910/31/22 [History] Ergocalciferol (Vitamin D2) [Drisdol (50,000 Iu)] 1,250 mcg PO FR 10/31/22 [History] Insulin Detemir [Levemir Flexpen] 52 units SQ HS@209910/31/22 [History] Insulin Lispro [humaLOG Kwikpen] 4 unit SQ TID-W/MEALS 10/31/22 [History] NIFEdipine XL [Procardia XL] 60 mg PO HS@209910/31/22 [History] Tolterodine ER [Detrol LA] 4 mg PO DAILY@0700 10/31/22 [History] Ciprofloxacin HCl [Cipro] 500 mg PO Q12HR 10 Days #20 tablet 11/03/22 [Rx] Gabapentin 600 mg PO TID@0700,1200,2100 #6 tab 11/03/22 [Rx] INSULIN ASPART (NovoLOG) [NovoLOG (formulary)] 0 unit SQ ACHS each 11/03/22 [Rx] Follow up Appointment(s)/Referral(s): Nolan Tovar MD [Primary Care Provider] - 1 Week Fabian Dimas MD [STAFF PHYSICIAN] - 1 Week Activity/Diet/Wound Care/Special Instructions: Patient is going to [facility] Activity as tolerated Continue taking Cipro 500 mg twice daily for the next 10 days Recommend CBC, BMP, magnesium in 2-3 days Recommend continue monitoring Accu-Cheks before meals and at bedtime Patient to continue with indwelling Snow catheter for now and trial void once more mobile and may need urology evaluation outpatient Continue local wound care to the sacral region by applying dry Aquacel silver dressing and changing every 48 hours or if becoming soiled and keep area off loaded with frequent position changes every 2 hours Discharge Disposition: TRANSFER TO SNF/ECF
[2022-11-03 13:48] VITALS: BP 144/82; PULSE 70; RESP 20; TEMP 98.4
--- NOTE | 2022-11-03 15:43 | P.PN ---
Subjective Progress Note Date: 11/03/22 Principal diagnosis: Pseudomonas urinary tract infection Patient is a 72-year-old male with a past medical his significant for hypertension hyperlipidemia diabetes mellitus history of prostate disorder sleep apnea and this patient has been mostly bedbound patient has been sent to the ER from the halfway for evaluation of increased fatigue and low heart rate , patient has been diagnosed with UTI and his urine cultures finalize to Pseudomonas last night antibiotic was adjusted to cefepime. On today's evaluation that is 11/03/2022, patient denies having any fever or any chills, the patient is breathing comfortably on nasal cannula oxygen no chest pain shortness of breath or cough no abdominal pain no diarrhea Objective - Vital Signs Vital signs: Vital Signs Temp 97.7 F 11/03/22 08:32 Pulse 59 L 11/03/22 08:32 Resp 16 11/03/22 10:07 BP 168/72 11/03/22 08:32 Pulse Ox 97 11/03/22 08:50 FiO2 Intake & Output 11/02/22 11/03/22 11/03/22 18:59 06:59 18:59 Intake Total 236 720 118 Output Total 1300 950 Balance -1064 -230 118 Intake: Oral 236 720 118 Output: Urine 1300 950 Other: Voiding Method Indwelling Catheter - Exam GENERAL DESCRIPTION: An elderly male lying in bed in no distress RESPIRATORY SYSTEM: Unlabored breathing , decreased breath sounds at bases HEART: S1 S2 regular rate and rhythm , ABDOMEN: Soft , no tenderness EXTREMITIES: No edema feet - Labs CBC & Chem 7: 11/02/22 05:29 11/03/22 05:52 Labs: Abnormal Lab Results - Last 24 Hours (Table) 11/02/22 11/02/22 11/03/22 Range/Units 17:04 19:29 05:34 BUN (9.0-27.0) mg/dL Est GFR (CKD-EPI)NonAf (60.0-200.0) BUN/Creatinine Ratio (12.00-20.00) Ratio Glucose (70-110) mg/dL POC Glucose (mg/dL) 132 H 186 H 193 H (70-110) mg/dL 11/03/22 11/03/22 Range/Units 05:52 11:53 BUN 32.1 H (9.0-27.0) mg/dL Est GFR (CKD-EPI)NonAf 53.8 L (60.0-200.0) BUN/Creatinine Ratio 24.69 H (12.00-20.00) Ratio Glucose 176 H (70-110) mg/dL POC Glucose (mg/dL) 188 H (70-110) mg/dL Microbiology - Last 24 Hours (Table) 10/31/22 10:44 Urine Culture - Final Urine,Voided Pseudomonas aeruginosa 10/31/22 15:20 Blood Culture - Preliminary Blood No Growth after 48 hours 10/31/22 15:05 Blood Culture - Preliminary Blood No Growth after 48 hours Assessment and Plan (1) Stage II pressure ulcer of sacral region Current Visit: Yes Status: Acute Code(s): L89.152 - PRESSURE ULCER OF SACRAL REGION, STAGE 2 SNOMED Code(s): 85675675249965 (2) UTI (urinary tract infection) Current Visit: Yes Status: Acute Code(s): N39.0 - URINARY TRACT INFECTION, SITE NOT SPECIFIED SNOMED Code(s): 57935944 Plan: 1patient presented to hospital with generalized weakness no energy in this patient noticed to have significantly positive UA concerning for a symptomatic UTI likely from enteric gram-negative pathogen with urine culture has been finalized with Pseudomonas that is a sensitive pathogen 2patient with stage II sacral pressure ulcer no evidence of any cellulitis. 3local wound care to the sacral wound with dry Aquacel silver dressing change every 48 hour keep the area of the pressure 4- patient is currently on cefepime that can be switched to oral Cipro to finish a course of therapy discussed with the admitting team [employer] Time with Patient: Less than 30
[2022-11-03 16:36] LABS: Glucose,Whole Blood 189 mg/dL (70-110)
[2022-11-03] MEDS ORDERED: CEFEPIME 2 GM in SODIUM CHLORIDE 0.9% 100 ML IVPB SCH (18:00)
[2022-11-05] MEDS ORDERED: Dulaglutide [Trulicity] 1.5 MG/0.5 ML Each SQ SCH (07:00)
== END 2022-11-03 18:10 | DRG 689 ==
LOC: EC 10:17 → 4SSUR 14:29
PROVIDERS: ADMIT Internal Medicine; ATTEND Internal Medicine
DX: N39.0 Urinary tract infection, site not specified (principal); G93.41 Metabolic encephalopathy; J98.11 Atelectasis; I27.20 Pulmonary hypertension, unspecified; L89.152 Pressure ulcer of sacral region, stage 2; E11.40 Type 2 diabetes mellitus with diabetic neuropathy, unspecified; I11.9 Hypertensive heart disease without heart failure; F32.A Depression, unspecified; I08.1 Rheumatic disorders of both mitral and tricuspid valves; B96.5 Pseudomonas (aeruginosa) (mallei) (pseudomallei) as the cause of diseases classified elsewhere; E78.5 Hyperlipidemia, unspecified; I44.7 Left bundle-branch block, unspecified; H91.93 Unspecified hearing loss, bilateral; G47.33 Obstructive sleep apnea (adult) (pediatric); R00.1 Bradycardia, unspecified; K21.9 Gastro-esophageal reflux disease without esophagitis; I44.0 Atrioventricular block, first degree; M19.90 Unspecified osteoarthritis, unspecified site; F41.9 Anxiety disorder, unspecified; M25.511 Pain in right shoulder; R26.9 Unspecified abnormalities of gait and mobility; Z20.822 Contact with and (suspected) exposure to COVID-19; Z98.1 Arthrodesis status; Z86.14 Personal history of Methicillin resistant Staphylococcus aureus infection; Z91.81 History of falling; Z97.4 Presence of external hearing-aid; Z86.73 Personal history of transient ischemic attack (TIA), and cerebral infarction without residual deficits; Z74.01 Bed confinement status; Z88.5 Allergy status to narcotic agent; Z88.8 Allergy status to other drugs, medicaments and biological substances; Z79.4 Long term (current) use of insulin; Z79.899 Other long term (current) drug therapy; Z79.85 Long-term (current) use of injectable non-insulin antidiabetic drugs; Z79.82 Long term (current) use of aspirin; Z83.3 Family history of diabetes mellitus
CPT/HCPCS: 36415; 70450; 71045; 80048; 80053; 80306; 81001; 82140; 83036; 83880; 84484; 85025; 85610; 85730; 87040; 87077; 87086; 87186; 87636; 93005; 93306; 94760; 96365; 96366; 96372; 99285